=== PATIENT | male | born 1960 | race Caucasian/White ===

== ENCOUNTER → 2017-06-03 11:38 | Outpatient (REF) | payer MEDICARE, SELFPAY ==
[2017-06-03 14:36] LABS: Alanine Aminotransferase 38 U/L (12-78); Albumin Level 3.7 gm/dL (3.4-5.0); Albumin/Globulin Ratio 1.2 (1.1-1.8); Alkaline Phosphatase 77 U/L (46-116); Anion Gap 13.1 mEq/L (5-15); Aspartate Amino Transferase 20 U/L (15-37); Bilirubin,Total 0.3 mg/dL (0.2-1.0); Blood Urea Nitrogen 19 mg/dL (7-18); Calcium 8.4 mg/dL (8.5-10.1); Carbon Dioxide 27 mmol/L (21.0-32.0); Chloride 105 mmol/L (98-107); Chol/HDL Ratio 3.3 (1-3.5); Cholesterol 157 mg/dL (140-200); Creatinine,Serum 0.99 mg/dL (0.70-1.30); Estimated Glomerular Filt Rate 78 ml/min (>60); GFR (African American) 95 ML/MIN (>60); Globulin 3.1 gm/dl (1.3-3.2); Glucose 90 mg/dL (74-106); HDL Cholesterol 47 mg/dL (27-67); LDL Cholesterol 88 mg/dL (0-130); Potassium 4.1 mmoL/L (3.5-5.1); Sodium 141 mmol/L (136-145); T4 (Thyroxine) 9.2 ug/dl (4.7-13.3); Thyroid Stimulating Hormone 1.53 uIU/ml (0.358-3.740); Total Protein,Serum 6.8 gm/dL (6.4-8.2); Triglycerides 111 mg/dL (30-200); VLDL Cholesterol 22 mg/dL (0-40)
[2017-06-03 14:53] LABS: Basophils # 0.1 K/mm3 (0-0.2); Basophils % 1.2 % (0.1-2.0); Eosinophils # 0.3 K/mm3 (0.0-0.4); Eosinophils % 3.4 % (0.1-12.0); Hematocrit 42.3 % (42.0-52.0); Hemoglobin 13.9 g/dL (14.1-18.0); Lymphocytes % 25.2 K/mm3 (10-50); Mean Corpuscular HGB Conc 32.7 g/dL (31.8-35.4); Mean Corpuscular Hemoglobin 30.3 pg (27.0-31.2); Mean Corpuscular Volume 92.5 fl (80-94); Monocytes # 0.5 K/mm3 (0.1-1.0); Monocytes % 6.6 % (1.7-9.3); Neutrophils % 63.7 % (37.0-80.0); Platelet Count 300 K/mm3 (142-424); Red Blood Count 4.58 M/mm3 (4.60-6.20); Red Cell Distribution Width 13.3 % (11.5-17.5); White Blood Count 7.9 K/mm3 (4.8-10.8)
[2017-06-04 12:19] LABS: PSA, Free 0.05 ng/mL; Prostate Specific Ag 0.1 ng/mL (0.0-4.0); Vitamin D 25 Hydroxy 41.1 ng/mL (30.0-100.0)
== END ==
LOC: LAB 11:38
PROVIDERS: Visit Provider Nurse Practitioner Family
DX: F17.200 Nicotine dependence, unspecified, uncomplicated (principal); R53.83 Other fatigue; I10 Essential (primary) hypertension; R35.1 Nocturia
CPT/HCPCS: 80053; 80061; 82652; 84153; 84154; 84436; 84443; 85025

== ENCOUNTER → 2017-09-03 11:16 | Outpatient (REF) | payer MEDICARE, SELFPAY ==
[2017-09-03 13:26] LABS: Basophils # 0.1 K/mm3 (0-0.2); Basophils % 0.8 % (0.1-2.0); Eosinophils # 0.1 K/mm3 (0.0-0.4); Hematocrit 46.8 % (42.0-52.0); Hemoglobin 14.6 g/dL (14.1-18.0); Lymphocytes # 2.4 K/mm3 (0.7-4.5); Lymphocytes % 28.2 K/mm3 (10-50); Mean Corpuscular HGB Conc 31.3 g/dL (31.8-35.4); Mean Corpuscular Volume 89.5 fl (80-94); Mean Platelet Volume 7.4 fl (7.4-10.4); Monocytes # 0.4 K/mm3 (0.1-1.0); Monocytes % 4.8 % (1.7-9.3); Neutrophils # 5.5 K/mm3 (1.8-7.8); Neutrophils % 65.3 % (37.0-80.0); Platelet Count 317 K/mm3 (142-424); Red Blood Count 5.23 M/mm3 (4.60-6.20); Red Cell Distribution Width 13.5 % (11.5-17.5); White Blood Count 8.4 K/mm3 (4.8-10.8)
[2017-09-03 13:39] LABS: Alanine Aminotransferase 23 U/L (12-78); Albumin Level 3.9 gm/dL (3.4-5.0); Albumin/Globulin Ratio 1.2 (1.1-1.8); Alkaline Phosphatase 80 U/L (46-116); Anion Gap 14.2 mEq/L (5-15); Aspartate Amino Transferase 8 U/L (15-37); Bilirubin,Total 0.3 mg/dL (0.2-1.0); Blood Urea Nitrogen 16 mg/dL (7-18); Calcium 9.7 mg/dL (8.5-10.1); Carbon Dioxide 30 mmol/L (21.0-32.0); Chloride 106 mmol/L (98-107); Chol/HDL Ratio 3.4 (1-3.5); Cholesterol 171 mg/dL (140-200); Estimated Glomerular Filt Rate 78 ml/min (>60); GFR (African American) 94 ML/MIN (>60); Globulin 3.2 gm/dl (1.3-3.2); Glucose 99 mg/dL (74-106); HDL Cholesterol 51 mg/dL (27-67); LDL Cholesterol 90 mg/dL (0-130); Potassium 5.2 mmoL/L (3.5-5.1); Sodium 145 mmol/L (136-145); T4 (Thyroxine) 8.2 ug/dl (4.7-13.3); Thyroid Stimulating Hormone 1.34 uIU/ml (0.358-3.740); Total Protein,Serum 7.1 gm/dL (6.4-8.2); Triglycerides 151 mg/dL (30-200); VLDL Cholesterol 30 mg/dL (0-40)
[2017-09-04 15:50] LABS: Vitamin B12 831 pg/mL (232-1245); Vitamin D 25 Hydroxy 36.9 ng/mL (30.0-100.0)
== END ==
LOC: LAB 11:16
PROVIDERS: Visit Provider Nurse Practitioner Family
DX: I10 Essential (primary) hypertension (principal); R53.83 Other fatigue; F17.200 Nicotine dependence, unspecified, uncomplicated
CPT/HCPCS: 80053; 80061; 82607; 82652; 84436; 84443; 85025

== ENCOUNTER → 2019-08-17 13:30 | Outpatient (CLI) | payer MEDICARE, SELFPAY ==
[2019-08-17 14:06] LABS: Alanine Aminotransferase 24 U/L (12-78); Albumin Level 4.5 g/dl (3.5-5.0); Albumin/Globulin Ratio 1.6 (1.1-1.8); Alkaline Phosphatase 71 U/L (38-126); Anion Gap 11.5 mEq/L (5-15); Aspartate Amino Transferase 28 U/L (17-59); Bilirubin,Total 0.2 mg/dl (0.2-1.3); Blood Urea Nitrogen 22 mg/dl (9-20); Calcium 9.8 mg/dl (8.4-10.2); Carbon Dioxide 26 mmol/L (22.0-30.0); Chloride 104 mmol/L (98-107); Chol/HDL Ratio 2.7 (1-3.5); Cholesterol 168 mg/dl (140-200); Estimated Glomerular Filt Rate 87 ml/min (>60); GFR (African American) 105 ML/MIN (>60); Globulin 2.9 g/dL (1.3-3.2); Glucose 100 mg/dl (74-100); HDL Cholesterol 62 mg/dl (40-60); Potassium 4.5 mmoL/L (3.5-5.1); Sodium 137 mmol/L (136-145); Total Protein,Serum 7.4 g/dl (6.3-8.2); Triglycerides 126 mg/dl (30-150); VLDL Cholesterol 25 mg/dL (0-40)
[2019-08-17 14:18] LABS: Direct LDL Cholesterol 106.51 mg/dL (100-129)
[2019-08-17 14:24] LABS: T4 (Thyroxine) 8.2 ug/dl (5.53-11.0)
[2019-08-17 14:37] LABS: Thyroid Stimulating Hormone 2.18 uIU/mL (0.465-4.68)
[2019-08-18 11:39] LABS: PSA, Free 0.16 ng/mL; Prostate Specific Ag 0.4 ng/mL (0.0-4.0); Vitamin D 25 Hydroxy 35.7 ng/mL (30.0-100.0)
== END ==
PROVIDERS: Visit Provider Nurse Practitioner Family
DX: I10 Essential (primary) hypertension (principal); F17.200 Nicotine dependence, unspecified, uncomplicated; N52.1 Erectile dysfunction due to diseases classified elsewhere
CPT/HCPCS: 80053; 80061; 82652; 84153; 84154; 84436; 84443

== ENCOUNTER → 2020-11-22 17:44 | Outpatient (CLI) | payer MEDICARE, SELFPAY ==
[2020-11-22 17:46] LABS: Coronavirus 19, PCR Not Detected (NotDetected); Influenza A, PCR Not Detected (NotDetected); Influenza B, PCR Not Detected (NotDetected)
== END ==
PROVIDERS: Visit Provider Nurse Practitioner Family
DX: J32.9 Chronic sinusitis, unspecified (principal); Z11.52 Encounter for screening for COVID-19
CPT/HCPCS: U0003

== ENCOUNTER → 2021-02-11 12:57 | Outpatient (CLI) | payer MEDICARE, SELFPAY ==
[2021-02-11 15:07] LABS: Chloride 105 mmol/L (98-107); Potassium 4.3 mmoL/L (3.5-5.1); Sodium 141 mmol/L (136-145)
[2021-02-11 15:09] LABS: Alanine Aminotransferase 19 U/L (12-78); Aspartate Amino Transferase 25 U/L (17-59); Blood Urea Nitrogen 14 mg/dl (9-20); Estimated Glomerular Filt Rate 116 ml/min (>60); GFR (African American) 140 ML/MIN (>60)
[2021-02-11 15:10] LABS: Albumin Level 4.2 g/dl (3.5-5.0); Albumin/Globulin Ratio 1.6 (1.1-1.8); Alkaline Phosphatase 79 U/L (38-126); Anion Gap 11.3 mEq/L (5-15); Bilirubin,Total 0.2 mg/dl (0.2-1.3); Calcium 9.1 mg/dl (8.4-10.2); Carbon Dioxide 29 mmol/L (22.0-30.0); Cholesterol 137 mg/dl (140-200); Globulin 2.7 g/dL (1.3-3.2); Glucose 95 mg/dl (74-100); Total Protein,Serum 6.9 g/dl (6.3-8.2); Triglycerides 137 mg/dl (30-150); VLDL Cholesterol 27 mg/dL (0-40)
[2021-02-11 15:11] LABS: Chol/HDL Ratio 2.8 (1-3.5); HDL Cholesterol 49 mg/dl (40-60)
[2021-02-11 15:17] LABS: Basophils # 0.1 K/mm3 (0-0.2); Basophils % 1.4 % (0.1-2.0); Eosinophils # 0.2 K/mm3 (0.0-0.4); Eosinophils % 1.9 % (0.1-12.0); Hematocrit 42.5 % (42.0-52.0); Hemoglobin 14.7 g/dL (14.1-18.0); Lymphocytes # 2.3 K/mm3 (0.7-4.5); Lymphocytes % 25.2 % (10-50); Mean Corpuscular HGB Conc 34.6 g/dL (31.8-35.4); Mean Corpuscular Hemoglobin 31.3 pg (27.0-31.2); Mean Corpuscular Volume 90.4 fl (80-94); Mean Platelet Volume 8.8 fl (7.4-10.4); Monocytes # 0.5 K/mm3 (0.1-1.0); Monocytes % 5.7 % (1.7-9.3); Neutrophils % 65.8 % (37.0-80.0); Platelet Count 350 K/mm3 (142-424); Red Cell Distribution Width 13.6 % (11.5-17.5); White Blood Count 9.2 K/mm3 (4.8-10.8)
[2021-02-11 15:32] LABS: T4 (Thyroxine) 8.5 ug/dl (5.53-11.0)
[2021-02-11 15:45] LABS: Direct LDL Cholesterol 99.68 mg/dL (100-129); Thyroid Stimulating Hormone 2.25 uIU/mL (0.465-4.68)
[2021-02-11 15:59] LABS: 25-OH Vitamin D, Total 45.9 ng/mL (30-100)
[2021-02-11 16:30] LABS: Prostate Specific Ag Screen 0.3 ng/ml (0.0-4.0)
== END ==
PROVIDERS: Visit Provider Nurse Practitioner Family
DX: E55.9 Vitamin D deficiency, unspecified (principal); F17.200 Nicotine dependence, unspecified, uncomplicated; G89.4 Chronic pain syndrome; I10 Essential (primary) hypertension; Z12.5 Encounter for screening for malignant neoplasm of prostate; J20.9 Acute bronchitis, unspecified
CPT/HCPCS: 80053; 80061; 82306; 84436; 84443; 85025; G0103

== ENCOUNTER → 2021-02-18 08:38 | Outpatient (CLI) | payer MEDICARE, SELFPAY | PROVIDERS: Visit Provider Surgery | DX: Z01.812 Encounter for preprocedural laboratory examination (principal); Z11.52 Encounter for screening for COVID-19; R13.10 Dysphagia, unspecified; Z13.810 Encounter for screening for upper gastrointestinal disorder | CPT/HCPCS: C9803; U0003; U0005 ==

== ENCOUNTER 2021-02-19 07:28 | Day surgery (SDC) | payer MEDICARE, MEDICAID, SELFPAY ==
[2021-02-13 14:42] VITALS: BMI 29.9
--- NOTE | 2021-02-19 07:40 | P.PN_ITS ---
[facility] Anesthesia Checklist - Patient Identification Patient Identification: Arm Band - Structural Data Admitted From: Home Planned Operative Procedure/s: EGD Consent for Planned Operative Procedure(s) Verified: Yes - NPO Status Verified Time NPO: 00:00 - Airway Assessment C-Spine Mobility Assessed: Yes TMJ Mobility Assessed: Yes Dentition: Good Dentition - Neurological Assessment Level of Consciousness: Awake Hx Seizures: No Numbness or tingling in extremities: No - Anesthesia Plan Anesthesia Risk discussed: Yes Anesthesia Plan: Verified ASA Class: III Anesthesia Type: MAC [facility] History I have reviewed the patient's past medical history: Yes Medical History: Reports:: Anxiety, Gastroesophageal Reflux Disease(GERD), Hypertension Denies:: Cancer, Diabetes Mellitus Type 1, Diabetes Mellitus Type 2, Internal Pacemaker, MRSA *Have you ever received a pneumonia vaccine?: No *Have you received a flu vaccine this season?: Yes Other Medical History: Reports: Arthritis, Fibromyalgia, Other Anesthesia experience/problems:: None Laterality Cases: Bilateral: Tonsillectomy Other Surgeries: Yes: No Previous Surgery, Hernia Repair, Other. No: Pacemaker Amputation: No Fractures: No - *Social History Last grade of school completed: High school graduate Smoking Status: Current every day smoker Tobacco Type: cigarettes # Packs/Day (cigarettes): 1 Alcohol Intake: current Alcohol Intake Frequency:: holidays/special occasions only Substance Use Type: denies use *Occupational Status:: disabled Housing: house Household Members: spouse *Travel in the last 8 weeks: None - Psychiatric History Pschychiatric History:: Reports:: Anxiety Family Hx:: Cancer
[2021-02-19 07:47] VITALS: BP 150/70; PULSE 83; RESP 18; TEMP 36.5; O2SAT 96
[2021-02-19 08:24] VITALS: O2SAT 97
[2021-02-19 08:38] VITALS: BP 103/70; PULSE 78; RESP 18; TEMP 36.1; O2SAT 90
--- NOTE | 2021-02-19 08:39 | HMH.SCOPE ---
- Procedure: Date: 02/19/21 Patient Date of :: 1960 Procedure Performed:: Esophagogastroduodenoscopy with biopsy Indications:: Reflux Dysphagia Performing Provider:: David Redd MD Referring Provider:: . Sedation:: Monitored anesthesia care Procedure:: After informed consent was obtained the patient was taken to the endoscopy suite. Sedation ensued after the patient was transferred to the left lateral decubitus position. Pulse, blood pressure, and oxygen saturation were monitored throughout the procedure. The endoscope was advanced beyond the duodenal bulb. Retroflexion within the gastric lumen was accomplished. The gastroscope was carefully removed and the patient was transferred to recovery in stable condition. Please see findings and specimens below for detail. Findings:: Distal esophageal candidiasis Gastroesophageal junction at 43 cm Patchy/streaking gastroduodenitis Specimens:: Antral biopsy Biopsy of gastric cardia Recommendations:: Diflucan prescription ordered Follow-up pathology The patient does report a history of colon polyps. Although he has undergone a Cologuard test fairly recently, a colonoscopy is warranted. The patient states that he will think about it . Complications:: No immediate Estimated blood obtained (mL): 1
[2021-02-19 08:48] VITALS: BP 107/69; PULSE 71; RESP 18; O2SAT 98
[2021-02-19 08:58] VITALS: BP 133/68; PULSE 64; RESP 18; O2SAT 97
[2021-02-19 09:06] VITALS: BP 145/82; PULSE 68; RESP 18; O2SAT 98
== END 2021-02-19 09:09 | disposition home or self-care (01) ==
LOC: OUTP 07:30
PROVIDERS: PCP Nurse Practitioner Family; Visit Provider Surgery
PROC: 0DJ08ZZ Inspection of Upper Intestinal Tract, Via Natural or Artificial Opening Endoscopic (ICD-10-PCS; CPT 43235; principal; 2021-02-19 08:30)
DX: B37.81 Candidal esophagitis (principal); K29.90 Gastroduodenitis, unspecified, without bleeding; F41.9 Anxiety disorder, unspecified; I10 Essential (primary) hypertension; M19.90 Unspecified osteoarthritis, unspecified site; M79.7 Fibromyalgia; E78.5 Hyperlipidemia, unspecified; Z72.0 Tobacco use; Z80.9 Family history of malignant neoplasm, unspecified; Z79.899 Other long term (current) drug therapy
CPT/HCPCS: 43239; 88305

== ENCOUNTER → 2021-05-14 15:06 | Outpatient (CLI) | payer MEDICARE, SELFPAY ==
[2021-05-14 15:30] LABS: Basophils # 0.1 K/mm3 (0-0.2); Eosinophils # 0.2 K/mm3 (0.0-0.4); Hemoglobin 14.4 g/dL (14.1-18.0); Lymphocytes # 2.9 K/mm3 (0.7-4.5); Lymphocytes % 30.9 % (10-50); Mean Corpuscular HGB Conc 34.3 g/dL (31.8-35.4); Mean Corpuscular Hemoglobin 31.2 pg (27.0-31.2); Mean Corpuscular Volume 91.1 fl (80-94); Mean Platelet Volume 7.7 fl (7.4-10.4); Monocytes # 0.4 K/mm3 (0.1-1.0); Monocytes % 4.7 % (1.7-9.3); Neutrophils # 5.7 K/mm3 (1.8-7.8); Neutrophils % 61.4 % (37.0-80.0); Platelet Count 316 K/mm3 (142-424); Red Blood Count 4.61 M/mm3 (4.60-6.20); Red Cell Distribution Width 13.8 % (11.5-17.5); White Blood Count 9.3 K/mm3 (4.8-10.8)
[2021-05-14 17:07] LABS: Blood Urea Nitrogen 24 mg/dl (9-20); Calcium 8.7 mg/dl (8.4-10.2); Carbon Dioxide 29 mmol/L (22.0-30.0); Chloride 104 mmol/L (98-107); Estimated Glomerular Filt Rate 86 ml/min (>60); GFR (African American) 105 ML/MIN (>60); Glucose 117 mg/dl (74-100); Sodium 140 mmol/L (136-145)
== END ==
PROVIDERS: PCP Nurse Practitioner Family; Visit Provider Internal Medicine Cardiovascular Disease
DX: F17.200 Nicotine dependence, unspecified, uncomplicated (principal); I10 Essential (primary) hypertension; I20.0 Unstable angina; I63.9 Cerebral infarction, unspecified; R00.2 Palpitations; R06.00 Dyspnea, unspecified; Z01.812 Encounter for preprocedural laboratory examination; Z11.52 Encounter for screening for COVID-19
CPT/HCPCS: 36415; 80048; 85025; C9803; U0003; U0005

== ENCOUNTER 2021-05-15 09:59 | Day surgery (SDC) | payer MEDICARE, SELFPAY ==
[2021-05-15] VITALS (13 sets, daily range): BP systolic 114–178; BP diastolic 63–107; PULSE 67–95; RESP 18–19; TEMP 36.7; O2SAT 95–100; BMI 30.3
--- NOTE | 2021-05-15 07:04 | IR_ITS ---
APPROVED REPORT Patient Location: Outpatient PROCEDURES Left heart catheterization Left ventriculogram Selective coronary angiogram FFR to the LAD Drug-eluting stent deployment to the proximal and mid LAD FFR to the left main artery INDICATION Coronary artery disease, Typical angina pectoris, Ischemic response to adenosine with an FFR index of 0.78 Informed consent was obtained prior to the procedure. COMPLICATIONS None Estimated Blood Loss: Less than 10 mls TECHNIQUE One percent lidocaine used to anesthetize the right anterior aspect of the wrist. The right radial artery was accessed via the Seldinger technique. A 6 Malawian sheath was placed in the right radial artery. 2.5 mg of verapamil, 800 mcg of nitroglycerin, 1mg Lidocaine and 5000 U Heparin were given through the arterial sheath. The Poppa catheter was also used to perform left heart catheterization, left ventriculogram and selective coronary angiogram. At the end the diagnostic angiogram therapeutic heparin was administered giving a therapeutic ACT and a Choice PT extra-support wire was placed distally in the LAD. A nevus catheter was equalized and then advanced into the mid LAD where adenosine was infused per protocol. The FFR index dropped to 0.78 and patient began experiencing significant dyspnea with coughing. The test was terminated at this time and a 3.5 x 30 mm resolute Sanford stent was deployed at 18 filiberto reducing the hemodynamically severe stenosis to 0%. At this point the nevus catheter was placed back into the left anterior descending artery and adenosine was infused. The FFR index nadired at 0.91 following stenting of the proximal LAD. Following this a significant appearing stenosis was identified distal to most likely what was an overexpanded stent into the mid LAD. Because of the over sizing of the stent I felt a better transition should be made with a smaller stent therefore a 2.75 x 12 mm resolute Sanford stent was placed distal to the LAD stent yet still overlapping it and deployed at 18 filiberto. The balloon was brought back and deployed at 24 filiberto to mesh the 2 stents. RUTH-3 flow was present down the LAD before and after the procedure. At the end of procedure the apparatus was removed the sheath was removed good hemostasis was achieved using TR banding patient was transferred to the postop putting in stable condition ANGIOGRAPHIC RESULTS The left main artery Has a long mid vessel cylindrical 30% stenosis The left anterior descending artery Is a proximal concentric calcified 40% stenosis with remaining vessel having mild 10% luminal irregularities The circumflex artery Large nondominant with mild 10% luminal irregularities The right coronary artery Is large and dominant with an ostial 20% stenosis proximal 10 to 20% stenoses mid vessel 30% stenoses with a concentric 30 to 40% stenosis. The posterior descending artery has mild 10% luminal irregularities while the much larger posterior lateral branch has a mid vessel 50 to 60% focal stenosis The HENRY ventriculogram reveals Not performed The left ventricular end-diastolic pressure Not measured IMPRESSION Angiographically indeterminate disease in the proximal LAD which produced severe hemodynamic significance creating an FFR index of 0.78 Successful stenting of a hemodynamically severe proximal LAD stenosis severe disease reduced to 0% with 2 drug-eluting stents which extended from the proximal to the mid segment in a contiguous manner Persistent mild to moderat left main disease as described above Moderate disease in the right coronary artery as described above PLAN 1. Dual antiplatelet therapy 2. LDL less than 55 3. Cardiac rehabilitation 4. Avoidance of tobacco products
[2021-05-15 12:25] LABS: CATHL Activated Clotting Time 399 SEC (74-125)
--- NOTE | 2021-05-15 14:03 | HMH.PHACLD ---
Manjeet Siddiqui SR has received discharge medication counseling on the following medications: ASPIRIN ROSUVASTATIN BRILINTA METOPROLOL ALTACE PATIENT VERBALIZED UNDERSTANDING AND HAD NO QUESTIONS AT THIS TIME. -NESHA MOTA, JORDAND
== END 2021-05-15 15:05 | disposition home or self-care (01) ==
LOC: CATHLAB 10:02
PROVIDERS: PCP Nurse Practitioner Family; Visit Provider Internal Medicine
DX: I10 Essential (primary) hypertension; I25.110 Atherosclerotic heart disease of native coronary artery with unstable angina pectoris; Z79.899 Other long term (current) drug therapy; F17.210 Nicotine dependence, cigarettes, uncomplicated
CPT/HCPCS: 85347; 92928; 93458; 93571; 93572; 99152; 99153; C1725; C1769; C1874; C1876; C9600; J1644; Q9967

== ENCOUNTER 2021-05-29 13:55 | Outpatient (RCR) | payer MEDICARE, SELFPAY | END 2021-05-29 13:59 | disposition home or self-care (01) | LOC: PT 13:55 | PROVIDERS: Visit Provider Internal Medicine | DX: I25.10 Atherosclerotic heart disease of native coronary artery without angina pectoris (principal); Z95.5 Presence of coronary angioplasty implant and graft | CPT/HCPCS: 93798 ==

== ENCOUNTER → 2022-02-18 08:58 | Outpatient (CLI) | payer MEDICARE, SELFPAY ==
[2022-02-18 09:52] LABS: Basophils # 0.1 K/mm3 (0-0.2); Basophils % 1.2 % (0.1-2.0); Eosinophils # 0.2 K/mm3 (0.0-0.4); Eosinophils % 2.1 % (0.1-12.0); Hematocrit 42.2 % (42.0-52.0); Lymphocytes # 2.6 K/mm3 (0.7-4.5); Lymphocytes % 30.1 % (10-50); Mean Corpuscular HGB Conc 33.1 g/dL (31.8-35.4); Mean Corpuscular Hemoglobin 30.6 pg (27.0-31.2); Mean Corpuscular Volume 92.5 fl (80-94); Mean Platelet Volume 7.9 fl (7.4-10.4); Monocytes # 0.7 K/mm3 (0.1-1.0); Monocytes % 7.5 % (1.7-9.3); Neutrophils # 5.2 K/mm3 (1.8-7.8); Neutrophils % 59.1 % (37.0-80.0); Platelet Count 343 K/mm3 (142-424); Red Blood Count 4.56 M/mm3 (4.60-6.20); Red Cell Distribution Width 13.4 % (11.5-17.5); White Blood Count 8.8 K/mm3 (4.8-10.8)
[2022-02-18 11:03] LABS: Alanine Aminotransferase 19 U/L (12-78); Albumin Level 4.3 g/dl (3.5-5.0); Alkaline Phosphatase 94 U/L (38-126); Anion Gap 15.2 mEq/L (5-15); Aspartate Amino Transferase 26 U/L (17-59); Bilirubin,Indirect 0.2 mg/dL (0.0-0.9); Bilirubin,Total 0.2 mg/dl (0.2-1.3); Bilirubin,Unconjugated 0.2 mg/dL (0.0-1.1); Blood Urea Nitrogen 21 mg/dl (9-20); Calcium 9.9 mg/dl (8.4-10.2); Carbon Dioxide 30 mmol/L (22.0-30.0); Chloride 101 mmol/L (98-107); Chol/HDL Ratio 2.3 (1-3.5); Cholesterol 103 mg/dl (140-200); Estimated Glomerular Filt Rate 69 ml/min (>60); GFR (African American) 83 ML/MIN (>60); Glucose 90 mg/dl (74-100); HDL Cholesterol 45 mg/dl (40-60); Magnesium 1.9 mg/dl (1.6-2.3); Potassium 4.2 mmoL/L (3.5-5.1); Sodium 142 mmol/L (136-145); Total Protein,Serum 6.8 g/dl (6.3-8.2); Triglycerides 139 mg/dl (30-150); VLDL Cholesterol 28 mg/dL (0-40)
== END ==
PROVIDERS: PCP Emergency Medicine; Visit Provider Nurse Practitioner
DX: E78.2 Mixed hyperlipidemia (principal); F17.200 Nicotine dependence, unspecified, uncomplicated; I10 Essential (primary) hypertension; I25.10 Atherosclerotic heart disease of native coronary artery without angina pectoris; Z95.5 Presence of coronary angioplasty implant and graft
CPT/HCPCS: 36415; 80048; 80061; 80076; 83735; 84439; 84443; 85025

== ENCOUNTER 2022-04-01 07:22 | Day surgery (SDC) | payer MEDICARE, SELFPAY ==
[2022-03-27 10:43] VITALS: BMI 29.9
[2022-04-01 07:35] VITALS: BP 172/88; PULSE 71; RESP 20; TEMP 36.4; O2SAT 98
--- NOTE | 2022-04-01 07:41 | HMH.SCOPE ---
Procedure: Date: 04/01/22 Patient Date of :: 1960 Procedure Performed:: Esophagogastroduodenoscopy with biopsy Colonoscopy Indications:: History of colon polyps Gastroesophageal reflux Esophagogastroduodenoscopy performed in February 2021 revealed esophageal candidiasis. He does have a remote history of colon polyps. Discussion with regard to colonoscopy was discussed at time of EGD; however, he wished to postpone . Performing Provider:: David Redd MD Referring Provider:: . Sedation:: Monitored anesthesia care Procedure:: After informed consent was obtained the patient was taken to the endoscopy suite. Sedation ensued after the patient was transferred to the left lateral decubitus position. Pulse, blood pressure, and oxygen saturation were monitored throughout the procedure. The endoscope was advanced beyond the duodenal bulb. Retroflexion within the gastric lumen was accomplished. The gastroscope was carefully removed. Digital rectal exam revealed no significant abnormality. The colonoscope was placed in position. The entire colon was evaluated. The colonoscope was carefully removed and the patient was transferred to recovery in stable condition. Please see findings and specimens below for detail. Findings:: Sliding hiatal hernia GE junction at 41 cm Minimal gastritis Bowel preparation moderate Scattered diverticulosis Multiple complex polyps (see specimens) Specimens:: Antral biopsy Right colon polyp (cold snare) 8 mm sessile polyp at 65 cm (cold snare) Adjacent polyps at 30 cm (cold snare) Polyp at 5 cm (cold snare) Recommendations:: Continue proton pump inhibition. Timing of repeat colonoscopy is pending pathology but will likely be between 1-2 years secondary to size/nature/number of polyps and moderate bowel preparation. Complications:: No immediate Estimated blood obtained (mL): 1
[2022-04-01 07:55] VITALS: O2SAT 97
--- NOTE | 2022-04-01 08:03 | EXP.ANES.CKL ---
[facility] Disclaimer: The information contained in this section may have been updated after the patient was seen, as this information can be updated by other users. Medical History Anxiety CAD (coronary artery disease) Chest pain Chronic pain syndrome COPD (chronic obstructive pulmonary disease) Crescendo angina Dizziness Dyspnea Erectile disorder, generalized, mild HTN (hypertension) Hypertensive disorder Palpitations Surgical History History of coronary artery stent placement History of hernia repair History of tonsillectomy Family History Other Family history of cancer Social History Smoking Status: Current every day smoker tobacco type: cigarettes packs per day: 1 second hand exposure: No alcohol intake: never substance use type: denies use current occupational status: unemployed and disabled Travel in the last 8 weeks: Inside the [place] household members: none housing: house current occupational exposures/hazards: No caffeine: Yes [facility] Anesthesia Checklist Patient Identification Patient Identification: Arm Band and Verbal (Name & ) Structural Data Admitted From: Home Planned Operative Procedure/s: EGD/Colonoscopy Verified Documents: Surgical Consent NPO Status Verified Time NPO: 05:30 Airway Assessment C-Spine Mobility Assessed: Yes TMJ Mobility Assessed: Yes Dentition: Good Dentition Neurological Assessment Level of Consciousness: Awake, Alert and Appropriate Anesthesia Plan ASA Class: III Anesthesia Type: MAC
[2022-04-01 08:55] VITALS: BP 113/76; PULSE 83; RESP 18; TEMP 36.7; O2SAT 99
[2022-04-01 09:05] VITALS: BP 146/95; PULSE 74; RESP 18; O2SAT 98
[2022-04-01 09:15] VITALS: BP 147/87; PULSE 69; RESP 18; O2SAT 98
[2022-04-01 09:30] VITALS: BP 165/97; PULSE 64; RESP 18; TEMP 36.6; O2SAT 97
== END 2022-04-01 09:25 | disposition home or self-care (01) ==
PROVIDERS: PCP Emergency Medicine; Visit Provider Surgery
PROC: 0DJ08ZZ Inspection of Upper Intestinal Tract, Via Natural or Artificial Opening Endoscopic (ICD-10-PCS; CPT 43235; principal; 2022-04-01 10:30)
DX: K21.9 Gastro-esophageal reflux disease without esophagitis (principal); Z86.010 Personal history of colon polyps; K57.30 Diverticulosis of large intestine without perforation or abscess without bleeding; Z12.11 Encounter for screening for malignant neoplasm of colon; D12.6 Benign neoplasm of colon, unspecified; F17.210 Nicotine dependence, cigarettes, uncomplicated; Z79.899 Other long term (current) drug therapy
CPT/HCPCS: 43239; 45385; 88305; J2704

== ENCOUNTER → 2022-06-18 12:24 | Outpatient (CLI) | payer MEDICARE, SELFPAY ==
--- NOTE | 2022-06-18 12:33 | XR_ITS ---
FINAL REPORT CLINICAL HISTORY: L Foot pain x 3 weeks, no injury, patient states pain on plantar surface at base of toes and shooting pains into 4th and 5th toes FINDINGS: Left foot Three views were obtained. There is no acute fracture or dislocation. There is a small plantar spur. There are mild hypertrophic changes at the 1st metatarsophalangeal joint. No soft tissue abnormality is identified. IMPRESSION: Degenerative and chronic appearing findings. Reviewed, Interpreted and Dictated by Amauri Vela MD Transcribed by Ariana Hawley Authenticated and [facility]
== END ==
PROVIDERS: PCP Nurse Practitioner Family; Visit Provider Nurse Practitioner Family
DX: M79.672 Pain in left foot (principal)
CPT/HCPCS: 73630

== ENCOUNTER → 2022-07-02 10:18 | Outpatient (CLI) | payer MEDICARE, SELFPAY ==
--- NOTE | 2022-07-02 10:27 | XR_ITS ---
FINAL REPORT CLINICAL HISTORY: foot pain COMPARISON: 06/18/2022 FINDINGS: LEFT FOOT Three weight-bearing views of the left foot demonstrate no acute fracture or dislocation. The joint spaces are preserved. The soft tissues are unremarkable. IMPRESSION: No acute bony abnormality. Reviewed, Interpreted and Dictated by Amauri Vela MD Transcribed by Ana Krueger Authenticated and [facility]
--- NOTE | 2022-07-02 10:27 | XR_ITS ---
FINAL REPORT CLINICAL HISTORY: foot pain FINDINGS: RIGHT FOOT Three weight-bearing views of the right foot demonstrate no acute fracture or dislocation. The joint spaces are preserved. There is a small plantar calcaneal spur. The soft tissues are unremarkable. IMPRESSION: No acute bony abnormality. Reviewed, Interpreted and Dictated by Amauri Vela MD Transcribed by Ana Krueger Authenticated and [facility]
== END ==
PROVIDERS: PCP Nurse Practitioner Family; Visit Provider Podiatrist
DX: M79.672 Pain in left foot (principal); M79.671 Pain in right foot
CPT/HCPCS: 73630

== ENCOUNTER → 2022-09-10 06:58 | Outpatient (CLI) | payer MEDICARE, SELFPAY ==
--- NOTE | 2022-09-10 07:01 | NM_ITS ---
APPROVED REPORT Exam: Nuclear Stress Test Indication: chest pain..soa..fatigue..hypertension..family hx..tobacco user..palpitations Patient Location: Outpatient Stress Tech: Davida Abdi [place] Tech:Rina Milligan, ARRT RT(R)(N) Ht: 5 ft 8 in Wt: 198 lbs HR: 63 bpm BP: 158/76 mmHg BSA: 2.03 m2 TID: 1.10 BMI: 30.1 History: chest pain..soa..fatigue..hypertension..family hx..tobacco user..palpitation Procedure: Patient exercised on Devendra protocol 7:45 minutes and sec, resting heart rate 63 bpm, resting blood pressure 158/76 mmHg, with exercise maximum heart rate achived was 129 bpm which is 81 % of the maximum predicted heart rate and blood pressure was 224/86 mmHg. Test was stopped due to fatigue. Patient denied any complaint of chest pain. Patient has exercise capacity, achieved 10.1 METs of workload on treadmill, the blood pressure response to exercise was . Cardiac Stress and Resting SPECT Images: Cardiac Stress and Resting SPECT images were obtained using technetium 99m Myoview 31.7 mCi stress and 10.47 mCi at rest. Resting and stress imaging in both the supine and prone positions demonstrate a large sized, severe, predominantly fixed perfusion defect in the inferior and inferior septal LV wall from the base and extending distally towards the inferoapical region. Gated imaging demonstrates an normal global LV systolic function. There was moderate hypokinesis in the basal inferior and inferoseptal LV wall. LVEF is calculated at 54%. Conclusion: Large sized, severe, predominantly fixed perfusion defect in the inferior and inferior septal LV wall from the base and extending distally towards the inferoapical region. Findings are suggestive of prior infarct with minimal regions of reversible ischemia. Gated imaging demonstrates an normal global LV systolic function. There was moderate hypokinesis in the basal inferior and inferoseptal LV wall. LVEF is calculated at 54%. Electronically signed by : Molly Partida, 09/11/2022 01:22:59
--- NOTE | 2022-09-10 09:16 | CA_ITS ---
APPROVED REPORT Exam: Exercise Treadmill Technologist: Davida Conrad, Ht: 5 ft 8 in Wt: 200 lbs BSA: 2.04 m2 HR: 52 bpm BP: 146/84 mmHg Rhythm: NSR Medical History Medications: Aspirin,,,,, Metoprolol,,,,, Gabapentin,,,,, Pantoprazole,,,,, Flonase,,,,, Ramipril,,,,, PERCOCET,,,,, Albuterol,,,,, ZYRTEC,,,,, CloPIdogrel,,,,, LoraTADINE,,,,, BenaDRYL,,,,, Stress Test Details Test: Devendra HR Resting HR: 63 bpm Max Heart Rate (APMHR): 160 bpm Max HR Achieved: 129 bpm Target HR (85% APMHR): 136 bpm % of APMHR: 81 Recovery HR: 74 bpm HR response to stress: Blunted HR response to stress BP Resting BP: 158.0/76 mmHg Max BP: 224/86 mmHg Recovery BP: 168.0/74.0 mmHg BP response to stress: Abnormal hypertensive response to stress. ECG Resting ECG: Sinus bradycardia, non-specific T-wave changes in inferolateral leads. Borderline R-axis deviation Stress ECG: Minimal upsloping ST depression in lateral leads Arrhythmia: VPC's Recovery ECG: ST return to baseline within < 3 minutes of recovery Recovery Arrhythmia: VPC Clinical Exercise duration: 07:45 min Highest Stage Achieved: III Exercise capacity: 10.1 METs Overall Exercise Capacity for Age: Good Stress ECG Conclusion This was a suboptimal stress test as the patient was unable to achieve > 85% max HR. He walked 7:45 on Devendra Protocol, stopping due to dyspnea. The patient was able to achieve 10.1 METS, exhibiting good exercise capacity for age and sex matched peers. Max HR: 129 % of PM: 81% Max BP: 224/86 METs: 10.1 Test stopped due to: SOA, Fatigue Symptoms: Dyspnea, No CP. Arrhythmias/Ectopy: Occastional PVC noted at peak stress and during recovery. ST-T Changes: No significant change Conclusion: This was a suboptimal stress test in the setting of unable to achieve > 85% max HR (patient took home beta-damaris). The patient had blunted heart rate response and exaggerated BP response to exercise. At peak stress, there was minimal upsloping ST depression < 0.5 mm in the lateral leads. PVCs were noted during stress and recovery. Overall, this was a non-diagnostic ECG stress test in the setting of suboptimal HR at peak stress. Myoview images reported separately. Test Summary REST . . . . . . . Sitting REST . . . . . . . Standing REST 03:55 0.0 0.0 63 . 158/ 76 . . Stage 1 01:00 10.0 1.7 77 . . . . Stage 1 02:00 10.0 1.7 81 . . . . Stage 1 03:00 10.0 1.7 87 . 172/ 84 . . Stage 2 01:00 12.0 2.5 91 . . . . Stage 2 02:00 12.0 2.5 97 . . . . Stage 2 03:00 12.0 2.5 102 . 190/ 84 . . Stage 3 01:00 14.0 3.4 116 . . . . Stage 3 01:45 14.0 3.4 127 . . . Stop exercise at 07:45 RECOVERY 01:00 0.0 0.0 118 . . . . RECOVERY 02:00 0.0 0.0 114 . . . . RECOVERY 03:00 0.0 0.0 91 . 224/ 86 . . RECOVERY 04:00 0.0 0.0 78 . 192/ 78 . . RECOVERY 05:00 0.0 0.0 77 . 192/ 78 . . RECOVERY 06:00 0.0 0.0 77 . 167/ 76 . . RECOVERY 06:37 0.0 0.0 76 . 168/ 74 . . Electronically signed by : Molly Partida, 09/15/2022 19:49:46
== END ==
PROVIDERS: PCP Nurse Practitioner Family; Visit Provider Nurse Practitioner Family
DX: E78.2 Mixed hyperlipidemia (principal); I10 Essential (primary) hypertension; Z95.5 Presence of coronary angioplasty implant and graft; I20.8 Other forms of angina pectoris
CPT/HCPCS: 78452; 93017; 93306; A9502; J2785

== ENCOUNTER → 2022-09-23 09:51 | Outpatient (CLI) | payer MEDICARE, SELFPAY ==
[2022-09-23 10:24] LABS: Basophils # 0.1 K/mm3 (0-0.2); Basophils % 1.1 % (0.1-2.0); Eosinophils # 0.2 K/mm3 (0.0-0.4); Hematocrit 40.8 % (42.0-52.0); Hemoglobin 13.4 g/dL (14.1-18.0); Lymphocytes # 2.4 K/mm3 (0.7-4.5); Lymphocytes % 32.9 % (10-50); Mean Corpuscular HGB Conc 32.9 g/dL (31.8-35.4); Mean Corpuscular Hemoglobin 29.6 pg (27.0-31.2); Mean Corpuscular Volume 89.9 fl (80-94); Mean Platelet Volume 7.5 fl (7.4-10.4); Monocytes # 0.5 K/mm3 (0.1-1.0); Platelet Count 274 K/mm3 (142-424); Red Blood Count 4.53 M/mm3 (4.60-6.20); Red Cell Distribution Width 13.3 % (11.5-17.5); White Blood Count 7.2 K/mm3 (4.8-10.8)
[2022-09-23 11:37] LABS: Chloride 102 mmol/L (98-107); Potassium 4.4 mmoL/L (3.5-5.1); Sodium 140 mmol/L (136-145)
[2022-09-23 11:39] LABS: Alanine Aminotransferase 22 U/L (12-78); Aspartate Amino Transferase 26 U/L (17-59); Bilirubin,Unconjugated 0.2 mg/dL (0.0-1.1); Blood Urea Nitrogen 16 mg/dl (9-20); Estimated Glomerular Filt Rate 86 ml/min (>60); GFR (African American) 104 ML/MIN (>60)
[2022-09-23 11:40] LABS: Albumin Level 4.2 g/dl (3.5-5.0); Alkaline Phosphatase 71 U/L (38-126); Anion Gap 11.4 mEq/L (5-15); Calcium 9.3 mg/dl (8.4-10.2); Carbon Dioxide 31 mmol/L (22.0-30.0); Chol/HDL Ratio 2.2 (1-3.5); Cholesterol 119 mg/dl (140-200); Glucose 82 mg/dl (74-100); HDL Cholesterol 55 mg/dl (40-60); Magnesium 1.9 mg/dl (1.6-2.3); Total Protein,Serum 6.6 g/dl (6.3-8.2); Triglycerides 103 mg/dl (30-150); VLDL Cholesterol 21 mg/dL (0-40)
[2022-09-23 11:51] LABS: Direct LDL Cholesterol 45.07 mg/dL (100-129)
[2022-09-23 11:56] LABS: Free T4 (Free Thyroxine) 1.11 ng/dl (0.78-2.19)
[2022-09-23 12:11] LABS: Thyroid Stimulating Hormone 2.63 uIU/mL (0.465-4.68)
[2022-09-23 12:18] LABS: Bilirubin,Total < 0.1 mg/dl (0.2-1.3)
[2022-09-23 15:01] LABS: Bilirubin,Indirect 0.1 mg/dL (0.0-0.9)
== END ==
PROVIDERS: PCP Nurse Practitioner Family; Visit Provider Nurse Practitioner Family
DX: I20.8 Other forms of angina pectoris; I10 Essential (primary) hypertension; E78.2 Mixed hyperlipidemia; Z95.5 Presence of coronary angioplasty implant and graft
CPT/HCPCS: 36415; 80048; 80061; 80076; 83735; 84439; 84443; 85025

== ENCOUNTER → 2022-09-26 13:20 | Outpatient (CLI) | payer MEDICARE, SELFPAY ==
--- NOTE | 2022-09-26 13:20 | CT_ITS ---
FINAL REPORT TECHNIQUE: Axial imaging of the chest was obtained without contrast. Reformatted images were also obtained and reviewed.This study was performed with techniques to keep radiation doses as low as reasonably achievable, (ALARA). Individualized dose reduction technique using automated exposure control or adjustment of mA and/or kV according to the patient's size were employed. 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 There is no hilar or mediastinal mass or adenopathy. Heart size is normal. There is no evidence of pericardial thickening or calcification to suggest pericarditis. There is mild emphysematous change. There is no pericardial or pleural effusion. Limited images of the upper abdomen are unremarkable. No suspicious infiltrate or nodule is identified on lung window images. IMPRESSION: No evidence of pericardial thickening or calcification to suggest pericarditis. Mild emphysema. Reviewed, Interpreted and Dictated by Diogenes Dejesus III, MD Transcribed by Fiordaliza Mishra Authenticated and [facility]
== END ==
PROVIDERS: PCP Nurse Practitioner Family; Visit Provider Nurse Practitioner Family
DX: E78.2 Mixed hyperlipidemia (principal); F17.200 Nicotine dependence, unspecified, uncomplicated; I10 Essential (primary) hypertension; I31.1 Chronic constrictive pericarditis; R93.1 Abnormal findings on diagnostic imaging of heart and coronary circulation; R94.30 Abnormal result of cardiovascular function study, unspecified; Z95.5 Presence of coronary angioplasty implant and graft; I20.8 Other forms of angina pectoris
CPT/HCPCS: 71250

== ENCOUNTER 2022-10-02 08:32 | Day surgery (SDC) | payer MEDICARE, SELFPAY ==
[2022-10-02] VITALS (13 sets, daily range): BP systolic 134–175; BP diastolic 68–94; PULSE 48–65; RESP 18–19; O2SAT 96–98; BMI 30.4
--- NOTE | 2022-10-02 | IR_ITS ---
APPROVED REPORT PROCEDURES Left heart catheterization Right heart catheterization Left ventriculogram Selective coronary angiogram Intravascular ultrasound of the LAD Drug-eluting stent deployment throughout the left main artery Drug-eluting stent deployment to the ostial proximal LAD Drug-eluting stent deployment to the ostial proximal circumflex artery Drug-eluting stent deployment into the first obtuse marginal Drug-eluting stent deployment to the ostial LAD Drug-eluting stent deployment to the ostial circumflex artery INDICATION Coronary artery disease, Accelerated angina pectoris, Angiographic ambiguity in the left main artery, Severe dampening within the left main artery, MLA of 5.2 mm??? in the left main artery Informed consent was obtained prior to the procedure. COMPLICATIONS None Estimated Blood Loss: Less than 10 ml TECHNIQUE One percent lidocaine used to anesthetize the right anterior aspect of the wrist. The right radial artery was accessed via the Seldinger technique. A 6 Prydeinig sheath was placed in the right radial artery. 150 mg magnesium sulfate, 800 mcg of nitroglycerin, 1mg Lidocaine and 5000 U Heparin were given through the arterial sheath. The papa catheter was also used to perform left heart catheterization, left ventriculogram and selective coronary angiogram. At the end the diagnostic angiogram therapeutic heparin was administered giving a therapeutic ACT and the guide catheter was placed in the left main artery followed by Choice PT extra-support wire down the LAD. Intravascular ultrasound probe was advanced due to severe dampening each time the catheter was inserted into the left main artery. An MLA of the left main artery measured at 5.2 mm??? which was a significant stenosis within the left main artery. Because of this a 5 mm x 12 mm Alvaro frontier stent was deployed at 18 filiberto in the ostial proximal mid distal left main artery reducing the stenosis. After stent deploymen this exacerbated a stenosis identified in the left anterior descending artery and the mid stent dissection was identified proximal to the circumflex artery. Because of this an additional Choice PT extra-support wire was placed down the circumflex artery. A 3.5 x 18 mm Alvaro frontier stent was placed over wire into the circumflex artery while at the same time a 3.5 x 15 mm Exline frontier stent was placed in the LAD. The circumflex artery stent was deployed at 20 filiberto reducing the stenosis as well as the edge dissection. The LAD stent was then deployed at 18 filiberto. An additional 3.5 x 18 mm Exline frontier stent was placed distal to the circumflex artery stent yet still overlapping it and stented into the obtuse marginal artery reducing the stenosis. Both balloons were brought back into the distal left main and inflated simultaneously at 14 filiberto as in a double barrel technique. RUTH-3 flow was present before and after the procedure. At the end of procedure the apparatus was removed the sheath was removed and hemostasis was achieved and TR banding patient was transferred to the postop holding in stable condition One percent lidocaine was used to anesthetize the right anterior aspect of the neck. A auto air conditioning mechanic needle was used to identify the right internal jugular vein. Following this a larger cannulation needle was used to cannulate the right internal jugular vein and a wire was passed into the vein. Prior to the 7 Prydeinig sheath being inserted the wire was confirmed under fluoroscopic guidance to be in the inferior vena cava. A 7 Prydeinig sheath was introduced and a Monroe-Kathleen catheter was floated using hemodynamic waveforms in the pulmonary artery, right ventricle , and right atrium. Saturations were obtained in the pulmonary artery and the right atrium. At the end of the procedure the patient was tr
[2022-10-02 09:29] LABS: Chloride 104 mmol/L (98-107); Potassium 4.2 mmoL/L (3.5-5.1); Sodium 142 mmol/L (136-145)
[2022-10-02 09:32] LABS: Anion Gap 12.2 mEq/L (5-15); Blood Urea Nitrogen 23 mg/dl (9-20); Carbon Dioxide 30 mmol/L (22.0-30.0); Creatinine Clearance Estimated 112 mL/min (50-200); Estimated Glomerular Filt Rate 86 ml/min (>60); GFR (African American) 104 ML/MIN (>60)
[2022-10-02 09:33] LABS: Basophils # 0.1 K/mm3 (0-0.2); Basophils % 0.9 % (0.1-2.0); Calcium 9.2 mg/dl (8.4-10.2); Eosinophils # 0.2 K/mm3 (0.0-0.4); Glucose 110 mg/dl (74-100); Hematocrit 41.9 % (42.0-52.0); Hemoglobin 13.7 g/dL (14.1-18.0); Lymphocytes # 2.3 K/mm3 (0.7-4.5); Lymphocytes % 33.1 % (10-50); Mean Corpuscular HGB Conc 32.7 g/dL (31.8-35.4); Mean Corpuscular Volume 88.8 fl (80-94); Mean Platelet Volume 7.3 fl (7.4-10.4); Monocytes # 0.6 K/mm3 (0.1-1.0); Monocytes % 8.2 % (1.7-9.3); Neutrophils # 3.9 K/mm3 (1.8-7.8); Neutrophils % 54.9 % (37.0-80.0); Platelet Count 286 K/mm3 (142-424); Red Blood Count 4.71 M/mm3 (4.60-6.20); Red Cell Distribution Width 13.4 % (11.5-17.5)
[2022-10-02 13:48] LABS: CATHL Venous O2 SAT 80.1 % (75-80)
[2022-10-02 13:50] LABS: CATHL Activated Clotting Time > 400 SEC (74-125)
[2022-10-02 13:51] LABS: CATHL Activated Clotting Time 319 SEC (74-125)
--- NOTE | 2022-10-02 14:01 | HMH.PHACL ---
[facility] Senior Benefits Specialist Discharge Med Wide Load Escort: Manjeet Siddiqui has received discharge medication counseling on the following medications: ASPIRIN [address] DAILY CLOPIDOGREL 75 MG DAILY METOPROLOL SUCCINATE 25 MG DAILY RAMIPRIL 10 MG DAILY ROSUVASTATIN 20 MG DAILY
--- NOTE | 2022-10-02 15:25 | SUR.PHASEII ---
Pt was d/c home and down the end of the parking not and returned to cathlab because he began bleeding from cath site, manual pressure applied to write for 10 minutes, bleeding stopped and redressed
--- NOTE | 2022-10-02 15:26 | SUR.PHASEII ---
Instructions re-discussed with patient if wrist begins to bleed
== END 2022-10-02 15:20 | disposition home or self-care (01) ==
PROVIDERS: PCP Nurse Practitioner Family; Visit Provider Internal Medicine
DX: I25.119 Atherosclerotic heart disease of native coronary artery with unspecified angina pectoris (principal); Z95.5 Presence of coronary angioplasty implant and graft; I10 Essential (primary) hypertension; J44.9 Chronic obstructive pulmonary disease, unspecified; I25.42 Coronary artery dissection
CPT/HCPCS: 80048; 82810; 85025; 85347; 92928; 92929; 93460; 93461; 99152; 99153; C1725; C1769; C1874; C1876; C1894; C9600; C9601; J1644; Q9967

== ENCOUNTER 2022-10-22 10:02 | Outpatient (RCR) | payer MEDICARE, SELFPAY | END 2022-11-21 11:45 | disposition home or self-care (01) | LOC: PT 10:02 | PROVIDERS: Visit Provider Internal Medicine | DX: I25.10 Atherosclerotic heart disease of native coronary artery without angina pectoris (principal); Z95.5 Presence of coronary angioplasty implant and graft | CPT/HCPCS: 93798 ==

== ENCOUNTER 2023-02-08 18:27 | Emergency (ER) | payer OTHER, MEDICARE, SELFPAY ==
[2023-02-08 18:43] VITALS: BMI 29.4
[2023-02-08 18:45] VITALS: BP 168/96; PULSE 89; RESP 19; TEMP 36.9; O2SAT 96
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
[2023-02-08 19:09] LABS: Chloride 102 mmol/L (98-107); Potassium 3.9 mmoL/L (3.5-5.1); Sodium 141 mmol/L (136-145)
[2023-02-08 19:10] LABS: POC Glucose,Bedside 129 (70-110)
[2023-02-08 19:10] LABS: Basophils # 0.1 K/mm3 (0-0.2); Basophils % 0.8 % (0.1-2.0); Eosinophils # 0.2 K/mm3 (0.0-0.4); Eosinophils % 1.9 % (0.1-12.0); Hematocrit 40.3 % (42.0-52.0); Lymphocytes # 2.5 K/mm3 (0.7-4.5); Lymphocytes % 26.8 % (10-50); Mean Corpuscular HGB Conc 34.7 g/dL (31.8-35.4); Mean Corpuscular Volume 89.5 fl (80-94); Mean Platelet Volume 7.8 fl (7.4-10.4); Monocytes # 0.6 K/mm3 (0.1-1.0); Monocytes % 5.8 % (1.7-9.3); Neutrophils # 6.1 K/mm3 (1.8-7.8); Neutrophils % 64.8 % (37.0-80.0); Platelet Count 264 K/mm3 (142-424); Red Blood Count 4.51 M/mm3 (4.60-6.20); Red Cell Distribution Width 13.8 % (11.5-17.5); White Blood Count 9.5 K/mm3 (4.8-10.8)
[2023-02-08 19:12] LABS: Alanine Aminotransferase 30 U/L (12-78); Albumin Level 4.9 g/dl (3.5-5.0); Albumin/Globulin Ratio 1.6 (1.1-1.8); Alkaline Phosphatase 78 U/L (38-126); Anion Gap 12.9 mEq/L (5-15); Aspartate Amino Transferase 36 U/L (17-59); Bilirubin,Total 0.2 mg/dl (0.2-1.3); Blood Urea Nitrogen 21 mg/dl (9-20); Calcium 9.1 mg/dl (8.4-10.2); Carbon Dioxide 30 mmol/L (22.0-30.0); Creatinine Clearance Estimated 79 mL/min (50-200); Estimated Glomerular Filt Rate 56 ml/min (>60); GFR (African American) 68 ML/MIN (>60); Glucose 127 mg/dl (74-100); Total Protein,Serum 7.9 g/dl (6.3-8.2)
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
[2023-02-08 19:15] LABS: Activated Partial Thrombo Time 26.6 seconds (22.8-30.6); INR 0.92 (0.9-1.1)
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
[2023-02-08 19:39] LABS: Lipase 143 U/L (23-300)
--- NOTE | 2023-02-08 19:46 | PC.NURSE ---
pt stated he does not feel like he needs the morphine at this time.
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
[2023-02-08 21:58] VITALS: BP 177/79; PULSE 18; RESP 18; TEMP 36.5; O2SAT 97
== END 2023-02-08 21:59 | disposition home or self-care (01) ==
PROVIDERS: Emergency Provider Emergency Medicine; PCP Nurse Practitioner Family
DX: M54.9 Dorsalgia, unspecified (principal); M79.622 Pain in left upper arm; V49.00XA Driver injured in collision with unspecified motor vehicles in nontraffic accident, initial encounter; I10 Essential (primary) hypertension; I25.10 Atherosclerotic heart disease of native coronary artery without angina pectoris; Z87.891 Personal history of nicotine dependence
CPT/HCPCS: 70450; 70496; 70498; 71045; 71275; 72125; 72128; 72131; 72170; 73030; 73060; 73080; 74174; 80053; 82962; 83690; 85025; 85610; 85730; 96374; 96375; 99285; J2405; Q9967

== ENCOUNTER 2023-05-27 13:31 | Outpatient (CLI) | payer MEDICARE, SELFPAY ==
--- NOTE | 2023-05-27 13:37 | XR_ITS ---
FINAL REPORT CLINICAL HISTORY: knee pain FINDINGS: AP, lateral and oblique views of the right knee were obtained. There is no prior exam for comparison. There is no acute osseous abnormality of the right knee. There is degenerative joint disease. The soft tissues are normal. Moderate joint effusion is identified. IMPRESSION: Degenerative joint disease and moderate effusion. Reviewed, Interpreted and Dictated by Marie Carrillo MD Transcribed by Ariana Hawley Authenticated and [facility]
--- NOTE | 2023-05-27 13:37 | XR_ITS ---
FINAL REPORT CLINICAL HISTORY: knee pain FINDINGS: AP, lateral and oblique views of the left knee were obtained. There is no prior exam for comparison. There is no acute osseous abnormality of the left knee. There is degenerative joint disease. The soft tissues are normal. No joint effusion is identified. IMPRESSION: Degenerative joint disease. Reviewed, Interpreted and Dictated by Marie Carrillo MD Transcribed by Ariana Hawley Authenticated and [facility]
== END 2023-05-27 23:59 ==
LOC: RAD 13:33
PROVIDERS: PCP Nurse Practitioner Family; Visit Provider Orthopaedic Surgery
DX: M25.561 Pain in right knee (principal); M25.562 Pain in left knee
CPT/HCPCS: 73562

== ENCOUNTER 2023-07-16 08:20 | Outpatient (CLI) | payer MEDICARE, SELFPAY ==
[2023-07-16 09:31] LABS: Alanine Aminotransferase 22 U/L (12-78); Albumin Level 4.2 g/dl (3.5-5.0); Alkaline Phosphatase 81 U/L (38-126); Aspartate Amino Transferase 27 U/L (17-59); Bilirubin,Direct 0.3 mg/dl (0.0-0.4); Bilirubin,Total 0.3 mg/dl (0.2-1.3); Chol/HDL Ratio 1.8 (1-3.5); Cholesterol 126 mg/dl (140-200); HDL Cholesterol 69 mg/dl (40-60); Total Protein,Serum 6.4 g/dl (6.3-8.2); Triglycerides 88 mg/dl (30-150); VLDL Cholesterol 18 mg/dL (0-40)
[2023-07-16 09:43] LABS: Direct LDL Cholesterol 54.92 mg/dL (100-129)
== END 2023-07-16 23:59 | disposition home or self-care (01) ==
LOC: LAB 08:22
PROVIDERS: PCP Nurse Practitioner Family; Visit Provider Nurse Practitioner
DX: I10 Essential (primary) hypertension (principal); Z95.5 Presence of coronary angioplasty implant and graft; F17.200 Nicotine dependence, unspecified, uncomplicated; I25.10 Atherosclerotic heart disease of native coronary artery without angina pectoris; E78.5 Hyperlipidemia, unspecified; I11.9 Hypertensive heart disease without heart failure
CPT/HCPCS: 36415; 80061; 80076

== ENCOUNTER 2023-08-03 07:08 | Outpatient (CLI) | payer MEDICARE, SELFPAY ==
--- NOTE | 2023-08-03 07:08 | NM_ITS ---
APPROVED REPORT Exam: Nuclear Stress Test Indication: SOB, HTN, High cholesterol, Tobacco use, CAD Patient Location: Outpatient Stress Tech: Alisha Brown NM Tech:Giovanna Minor, ARRT, RT (R)(N) Ht: 5 ft 8 in Wt: 205 lbs HR: 78 bpm BP: 152/80 mmHg BSA: 2.07 m2 TID: 1.22 BMI: 31.1 History: SOB, HTN, High cholesterol, Tobacco use, CAD Procedure: Patient exercised on Devendra protocol 7:31 minutes and sec, resting heart rate 78 bpm, resting blood pressure 152/80 mmHg, with exercise maximum heart rate achived was 130 bpm which is 82 % of the maximum predicted heart rate and blood pressure was 200/85 mmHg. Test was stopped due to SOB. Patient denied any complaint of chest pain. Patient has exercise capacity, achieved 9.0 METs of workload on treadmill, the blood pressure response to exercise was . Cardiac Stress and Resting SPECT Images: Cardiac Stress and Resting SPECT images were obtained using technetium 99m Myoview 31.4 mCi stress and 10.14 mCi at rest. Resting and stress imaging in supine and prone positions demonstrate a large sized, moderate, fixed perfusion defect in the inferior LV wall. There is increased transient ischemic dilatation ratio (TID 1.22), suggestive of possible multivessel disease or balanced ischemia. Gated imaging demonstrates normal global LV systolic function. There is mild hypokinesis of the basal inferior LV wall. LVEF is calculated at 56%. Conclusion: Large sized, moderate, fixed perfusion defect in the inferior LV wall. There is increased transient ischemic dilatation ratio (TID 1.22), suggestive of possible multivessel disease or balanced ischemia. Gated imaging demonstrates normal global LV systolic function. There is mild hypokinesis of the basal inferior LV wall. LVEF is calculated at 56%. Electronically signed by : Molly Partida MD 08/05/2023 11:22:55
[2023-08-03] MEDS: ISOTOPE MYOVIEW (PER STUDY) 1 DOSE IV (08:41)
[2023-08-03] MEDS: SODIUM CHLORIDE 0.9% 10ML SYR (RAD ONLY) 10 ML IV ×2 (08:41)
--- NOTE | 2023-08-03 09:30 | CA_ITS ---
APPROVED REPORT Exam: Exercise Treadmill Technologist: Alisha Brown Ht: 5 ft 9 in Wt: 208 lbs BSA: 2.10 m2 HR: 71 bpm BP: 152/80 mmHg Rhythm: NSR Indications: CAD, Chest pain Medical History Medications: Aspirin,,,,, Gabapentin,,,,, Pantoprazole,,,,, Metoprolol Succinate,,,,, Ramipril,,,,, PERCOCET,,,,, Albuterol,,,,, Montelukast,,,,, CloPIdogrel,,,,, Ibuprofen,,,,, LoraTidine,,,,, Hydroxyzine,,,,, Stress Test Details Test: Manual Treadmill HR Resting HR: 78 bpm Max Heart Rate (APMHR): 159 bpm Max HR Achieved: 130 bpm Target HR (85% APMHR): 135 bpm % of APMHR: 82 Recovery HR: 84 bpm BP Resting BP: 152.0/80.0 mmHg Max BP: 200.0/85.0 mmHg Recovery BP: 142.0/69.0 mmHg ECG Resting ECG: Normal sinus rhythm Stress ECG: No significant ST changes Arrhythmia: PVCs Clinical Exercise duration: 07:31 min Highest Stage Achieved: Exercise capacity: 9.0 METs Stress ECG Conclusion Injected at 85% of target due to hip pain. Symptoms: Shortness of air. No chest pain. Arrhythmias/Ectopy: Frequent PVCs ST-T Changes: No significant ST changes Conclusion: Unremarkable Lexiscan stress test. Myoview images reported separately. Test Summary REST . . . . . . . Sitting REST . . . . . . . Standing REST 17:39 0.0 0.0 78 . 152/ 80 . . Stage 1 01:00 10.0 1.7 87 . . . . Stage 1 02:00 10.0 1.7 93 . . . . Stage 1 03:00 10.0 1.7 95 . 160/ 82 . . Stage 2 01:00 12.0 2.5 103 . . . . Stage 2 02:00 12.0 2.5 107 . . . . Stage 2 03:00 12.0 2.5 113 . 168/ 88 . . Stage 3 . . . . . . . Protocol changed to Manual Treadmill Stage 3 . . . . . . . Myoview Injected Stage 3 01:00 14.0 3.0 122 . . . . Stage 3 01:31 14.0 3.0 130 . . . Stop exercise at 07:31 RECOVERY 01:00 0.0 0.0 119 . . . . RECOVERY 02:00 0.0 0.0 116 . . . . RECOVERY 03:00 0.0 0.0 104 . 200/ 85 . . RECOVERY 04:00 0.0 0.0 99 . 188/ 80 . . RECOVERY 05:00 0.0 0.0 87 . 188/ 80 . . RECOVERY 05:57 0.0 0.0 89 . 142/ 69 . . Electronically signed by : Molly Partida MD 08/05/2023 11:21:19
== END 2023-08-03 23:59 | disposition home or self-care (01) ==
LOC: RAD 07:08
PROVIDERS: PCP Nurse Practitioner Family; Visit Provider Nurse Practitioner Family
DX: I25.118 Atherosclerotic heart disease of native coronary artery with other forms of angina pectoris (principal); R61 Generalized hyperhidrosis; R07.89 Other chest pain
CPT/HCPCS: 78452; 93017; 93018; A9502

== ENCOUNTER 2023-08-12 08:26 | Day surgery (SDC) | payer MEDICARE, SELFPAY ==
[2023-08-12] VITALS (18 sets, daily range): BP systolic 128–161; BP diastolic 46–90; PULSE 54–72; RESP 14–18; TEMP 36.6; O2SAT 94–98; BMI 30.8
--- NOTE | 2023-08-12 07:34 | IR_ITS ---
APPROVED REPORT Patient Location: Outpatient PROCEDURES Left heart catheterization Left ventriculogram Selective coronary angiogram INDICATION Abnormal Myoview, Angina pectoris, History of left main coronary stenting Informed consent was obtained prior to the procedure. COMPLICATIONS None Estimated Blood Loss: Less than 10 mls TECHNIQUE One percent lidocaine was used to anesthetize the right groin. The right femoral artery was accessed via the Seldinger technique. A 4-Indian sheath was placed in the right femoral artery. The JL-4 and JR-4 catheter was also used to perform left heart catheterization left ventriculogram and selective coronary angiogram. At the end of the procedure the patient was transferred to the post-op holding area in stable condition for arterial sheath removal. ANGIOGRAPHIC RESULTS The left main artery Has an ostial 30 to 40% stenosis followed by a stent which is widely patent and extends into the LAD. There is excellent transitioning into the LAD The left anterior descending artery Has a stent originating from the left main artery which extends throughout the proximal and into the mid segment. The stent is widely patent with with mild distal concentric 30% in-stent restenosis with excellent distal transitioning The circumflex artery Has a stent which tease off the left main artery and is widely patent with 30 to 40% ostial stenosis The right coronary artery Is a dominant vessel with mild 20% proximal stenosis and distal 20 to 30% stenoses The HENRY ventriculogram reveals Normal 65% The left ventricular end-diastolic pressure 25 to 30 mmHg IMPRESSION Widely patent coronary arteries as described above Elevated LVEDP consistent with diastolic dysfunction Normal ejection fraction PLAN 1. Transient ischemic dilatation on stress test almost certainly stems from elevated LVEDP which requires treatment 2. Recommend avoidance of tobacco products 3. Medical management 4. Risk factor modification 5. Lasix and spironolactone will be added for HFpEF treatment Electronically signed by : Campbell Macias MD 08/12/2023 15:10:43
[2023-08-12 09:04] LABS: Basophils # 0.1 K/mm3 (0-0.2); Basophils % 1.2 % (0.1-2.0); Eosinophils # 0.2 K/mm3 (0.0-0.4); Eosinophils % 2.7 % (0.1-12.0); Hematocrit 40.7 % (42.0-52.0); Hemoglobin 13.3 g/dL (14.1-18.0); Lymphocytes # 1.9 K/mm3 (0.7-4.5); Lymphocytes % 23.2 % (10-50); Mean Corpuscular HGB Conc 32.8 g/dL (31.8-35.4); Mean Corpuscular Volume 91.5 fl (80-94); Mean Platelet Volume 7.8 fl (7.4-10.4); Monocytes # 0.5 K/mm3 (0.1-1.0); Monocytes % 5.6 % (1.7-9.3); Neutrophils # 5.6 K/mm3 (1.8-7.8); Neutrophils % 67.4 % (37.0-80.0); Platelet Count 312 K/mm3 (142-424); Red Blood Count 4.44 M/mm3 (4.60-6.20); Red Cell Distribution Width 14.5 % (11.5-17.5); White Blood Count 8.2 K/mm3 (4.8-10.8)
[2023-08-12 09:17] LABS: Blood Urea Nitrogen 20 mg/dl (9-20); Calcium 9.7 mg/dl (8.4-10.2); Carbon Dioxide 26 mmol/L (22.0-30.0); Chloride 106 mmol/L (98-107); Creatinine Clearance Estimated 104 mL/min (50-200); Estimated Glomerular Filt Rate 86 ml/min (>60); GFR (African American) 104 ML/MIN (>60); Glucose 108 mg/dl (74-100); Sodium 141 mmol/L (136-145)
[2023-08-12] MEDS: HEPARIN 1,000 UNITS/ML 10ML VIAL (CATH LAB) 10000 UNIT IV (10:33)
[2023-08-12] MEDS: VERAPAMIL 2.5MG/ML 2ML VIAL 2.5 MG IV (10:33)
[2023-08-12] MEDS: NITROGLYCERIN 800MCG/8ML SYR (CATH LAB) 800 MCG IA (10:33)
[2023-08-12] MEDS: diphenhydrAMINE 50MG/ML VIAL 50 MG IV (10:33)
[2023-08-12] MEDS: HEPARIN 1,000 UNITS/500ML NS (CATH LAB) 3000 UNIT IV (10:34)
[2023-08-12] MEDS: 0.9 % SODIUM CHLORIDE 500 ML 25 ML IV (10:34)
[2023-08-12] MEDS: LIDOCAINE 1% 10ML MDV 20 ML IJ (10:34)
[2023-08-12] MEDS: MIDAZOLAM HCL 1MG/1ML 5ML VIAL 1 MG IV (11:14)
[2023-08-12] MEDS: FENTANYL 100MCG/2ML VIAL 50 MCG IV (11:15)
[2023-08-12] MEDS: OXYCODONE 5MG W/APAP 325MG TABLET 2 EACH PO (13:05)
[2023-08-12] MEDS: IOPAMIDOL-370 (76%);100ML BOTTLE 50 ML IV (15:03)
== END 2023-08-12 14:36 | disposition home or self-care (01) ==
PROVIDERS: PCP Nurse Practitioner Family; Visit Provider Internal Medicine
DX: R06.02 Shortness of breath (principal); R61 Generalized hyperhidrosis; I31.1 Chronic constrictive pericarditis; I25.118 Atherosclerotic heart disease of native coronary artery with other forms of angina pectoris; E78.2 Mixed hyperlipidemia; Z95.5 Presence of coronary angioplasty implant and graft; I10 Essential (primary) hypertension; R53.83 Other fatigue; F17.210 Nicotine dependence, cigarettes, uncomplicated; Z79.899 Other long term (current) drug therapy; J44.9 Chronic obstructive pulmonary disease, unspecified
CPT/HCPCS: 80048; 85025; 93458; 99152; 99153; C1725; C1769; J1644; Q9967

== ENCOUNTER 2023-09-16 09:31 | Outpatient (CLI) | payer MEDICARE, SELFPAY ==
[2023-09-16 11:31] LABS: Anion Gap 14.7 mEq/L (5-15); Blood Urea Nitrogen 31 mg/dl (9-20); Calcium 9.9 mg/dl (8.4-10.2); Carbon Dioxide 28 mmol/L (22.0-30.0); Chloride 102 mmol/L (98-107); Estimated Glomerular Filt Rate 56 ml/min (>60); GFR (African American) 68 ML/MIN (>60); Glucose 96 mg/dl (74-100); Potassium 4.7 mmoL/L (3.5-5.1); Sodium 140 mmol/L (136-145)
== END 2023-09-16 23:59 | disposition home or self-care (01) ==
LOC: LAB 09:32
PROVIDERS: PCP Nurse Practitioner Family; Visit Provider Nurse Practitioner Family
DX: I25.118 Atherosclerotic heart disease of native coronary artery with other forms of angina pectoris (principal); I11.0 Hypertensive heart disease with heart failure; I50.30 Unspecified diastolic (congestive) heart failure; F17.210 Nicotine dependence, cigarettes, uncomplicated
CPT/HCPCS: 36415; 80048

== ENCOUNTER 2024-01-20 13:11 | Outpatient (CLI) | payer MEDICARE, SELFPAY ==
[2024-01-20 18:49] LABS: Anion Gap 14.5 mEq/L (5-15); Blood Urea Nitrogen 39 mg/dl (9-20); Calcium 9.4 mg/dl (8.4-10.2); Carbon Dioxide 20 mmol/L (22.0-30.0); Chloride 107 mmol/L (98-107); Estimated Glomerular Filt Rate 62 ml/min (>60); GFR (African American) 74 ML/MIN (>60); Glucose 129 mg/dl (74-100); Potassium 4.5 mmoL/L (3.5-5.1); Sodium 137 mmol/L (136-145)
== END 2024-01-20 23:59 | disposition home or self-care (01) ==
LOC: LAB.DROPOF 01-21 13:11
PROVIDERS: PCP Nurse Practitioner Family; Visit Provider Nurse Practitioner Family
DX: R53.83 Other fatigue (principal)
CPT/HCPCS: 80048

== ENCOUNTER 2024-08-18 09:04 | Outpatient (CLI) | payer MEDICARE, SELFPAY ==
[2024-08-18 09:22] LABS: Basophils # 0.1 K/mm3 (0-0.2); Basophils % 0.9 % (0.1-2.0); Eosinophils # 0.2 Kmm3 (0.0-0.4); Eosinophils % 2.4 % (0.1-12.0); Hematocrit 39.3 % (42.0-52.0); Hemoglobin 12.9 g/dL (14.1-18.0); Immature Granulocytes # 0.03 10^3uL; Immature Granulocytes % 0.4 %; Lymphocytes # 2.4 K/mm3 (0.7-4.5); Lymphocytes % 29.4 % (10-50); Mean Corpuscular HGB Conc 32.8 g/dL (31.8-35.4); Mean Corpuscular Hemoglobin 29.3 pg (27.0-31.2); Mean Corpuscular Volume 89.3 fl (80-94); Monocytes # 0.8 K/mm3 (0.1-1.0); Monocytes % 9.7 % (1.7-9.3); Neutrophils # 4.7 K/mm3 (1.8-7.8); Neutrophils % 57.2 % (37.0-80.0); Nucleated Red Blood Cells # 0 10^3/uL; Nucleated Red Blood Cells % 0 %; Platelet Count 268 K/mm3 (142-424); Red Cell Distribution Width 13.6 % (11.5-17.5); Red Cell Distribution Width-SD 44.3 fL; White Blood Count 8.2 K/mm3 (4.8-10.8)
[2024-08-18 09:33] LABS: Alanine Aminotransferase 18 U/L (12-78); Albumin Level 4.5 g/dl (3.5-5.0); Alkaline Phosphatase 60 U/L (38-126); Anion Gap 9.7 mEq/L (5-15); Aspartate Amino Transferase 23 U/L (17-59); Bilirubin,Direct 0.2 mg/dl (0.0-0.4); Bilirubin,Indirect 0.2 mg/dL (0.0-0.9); Bilirubin,Total 0.4 mg/dl (0.2-1.3); Bilirubin,Unconjugated 0.2 mg/dL (0.0-1.1); Blood Urea Nitrogen 22 mg/dl (9-20); Calcium 9.4 mg/dl (8.4-10.2); Carbon Dioxide 28 mmol/L (22.0-30.0); Chloride 106 mmol/L (98-107); Chol/HDL Ratio 2.2 (1-3.5); Cholesterol 108 mg/dl (140-200); Estimated Glomerular Filt Rate 86 ml/min (>60); GFR (African American) 103 ML/MIN (>60); Glucose 96 mg/dl (74-100); HDL Cholesterol 49 mg/dl (40-60); Magnesium 1.8 mg/dl (1.6-2.3); Potassium 4.7 mmoL/L (3.5-5.1); Sodium 139 mmol/L (136-145); Triglycerides 90 mg/dl (30-150); VLDL Cholesterol 18 mg/dL (0-40)
[2024-08-18 09:44] LABS: Direct LDL Cholesterol 41.95 mg/dL (100-129)
[2024-08-18 09:51] LABS: Troponin I < 0.01 ng/ml (0.00-0.034)
[2024-08-18 10:06] LABS: Thyroid Stimulating Hormone 3.45 uIU/mL (0.465-4.68)
[2024-08-18 10:20] LABS: Free T4 (Free Thyroxine) 0.94 ng/dl (0.78-2.19)
== END 2024-08-18 23:59 | disposition home or self-care (01) ==
LOC: LAB 09:05
PROVIDERS: PCP Nurse Practitioner Family; Visit Provider Nurse Practitioner Family
DX: I20.89 Other forms of angina pectoris (principal); I10 Essential (primary) hypertension; R94.39 Abnormal result of other cardiovascular function study; R53.83 Other fatigue; R06.02 Shortness of breath
CPT/HCPCS: 36415; 80048; 80061; 80076; 83735; 84439; 84443; 84484; 85025

== ENCOUNTER 2024-09-08 09:39 | Outpatient (CLI) | payer MEDICARE, SELFPAY ==
--- OUTSIDE RECORDS SUMMARY | 2024-09-08 09:48 | XMS_ITS | Clinical Summary ---
Author Organization [facility] [place] [address] Care Team Providers Care Strategic Partner Development Manager Name Role Phone Unavailable Primary Care Provider Unavailabl e Social History Tobacco Use Types Packs/Day Years Used Date Smoking Tobacco: Never Assessed Sex and Gender Information Value Date Recorded Sex Assigned at Not on file Legal Sex Male 7:42 PM EDT Gender Identity Not on file Sexual Orientation Not on file Last Filed Vital Signs Vital Sign Reading Time Taken Comments Blood Pressure 171/96 09/10/2022 10:17 AM EDT Pulse 67 09/10/2022 10:17 AM EDT Temperature - - Respiratory Rate - - Oxygen Saturation - - Inhaled Oxygen Concentration - - Weight 90.7 kg (200 lb) 09/10/2022 10:17 AM EDT Height 172.7 cm (5' 8 ) 09/10/2022 10:17 AM EDT Body Mass Index 30.41 09/10/2022 10:17 AM EDT Plan of Treatment Health Maintenance Due Date Last Done Comments [facility]-Depression Screening 1960 [facility]-Infant/Child/Adol SDOH Screenings 1960 [facility]- SDOH Screenings 1980 [facility]-Adult SDOH Screenings 1980 [facility]-DTaP,Tdap,and Td Vaccines (1 - Tdap) 1981 CT Colonography 2007 Colonoscopy 2007 FIT-DNA 2007 FIT 2007 FOBT 2007 Sigmoidoscopy 2007 [facility]-Colorectal Cancer Screening 2007 [facility]-Pneumococcal Vaccine: 50+ Years (1 of 1 - PCV) 2012 [facility]-Zoster Vaccines (1 of 2) 2012 EAB-WILKH-15 Vaccine ( season) 2023 01/24/2022, 10/22/2021, 03/13/2021, Additional history exists [facility]-Influenza Vaccine (Season Ended) 2024 12/04/2021, 12/27/2020, 12/28/2019, Additional history exists [facility]-RSV Vaccine: 60+ Years or (1 - 1-dose 75+ series) 2037 [facility]-Hepatitis A Vaccines Aged Out 08/29/2018 No longer eligible based on patient's age to complete this topic HPV Vaccines Aged Out No longer eligi ble based on patient's age to complete this topic [facility]-HIB Vaccines Aged Out No longer e ligible based on patient's age to complete this topic [facility]-IPV Vaccines Aged Out No longer e ligible based on patient's age to complete this topic [facility]-Rotavirus Vaccines Aged Out No lo nger eligible based on patient's age to complete this topic Insurance [employer]
--- OUTSIDE RECORDS SUMMARY | 2024-09-08 09:48 | XMS_ITS | Encounter Summary ---
Author Organization [employer] Address [address] [place] [address] Care Team Providers Care Cooper Apprentice Name Role Phone Unavailable Primary Care Provider Unavailabl e Encounter Details Date Type Department Care Team (Late st Contact Info) Description 03/28/2019 Transcribed Document [facility] [place] [address] [place] [address] ProviderRoberta MD [address] [place] [address] Social History Tobacco Use Types Packs/Day Years Used Date Smoking Tobacco: Never Assessed Sex and Gender Information Value Date Recorded Sex Assigned at Not on file Legal Sex Male 4:21 PM CDT Gender Identity Not on file Sexual Orientation Not on file documented as of this encounter Miscellaneous Notes * Cerner Conversion Note - Roberta ProviderMD - 03/28/2019 9:42 AM CONTAINER MAKER Evaluation, Occupational Therapy Entered On: 03/28/2019 15:07 EST Performed On: 03/28/2019 14:22 EST by UNA JACOBSEN OTR/L General Information, OT General Information Comment, OT : pain pump revision UNA JACOBSEN OTR/L - 03/28/2019 15:07 EST Visit Type, OT : Initial evaluation UNA JACOBSEN OTR/L - 03/28/2019 15:06 EST Patient Orders : Order Date Order Ordering 03/28/2019 09:42 Occupational Therapy Evaluation and Treatme Ordered By: DOMENICO MEZA MD-[facility] Active Diagnoses : No Qualifying Diagnoses Admission Date : 03/28/2019 06:42 UNA JACOBSEN OTR/L - 03/28/2019 15:07 EST Co-treated by, OT : Physical Therapist UNA JACOBSEN OTR/L - 03/28/2019 15:06 EST Personal Devices : Personal Devices No Devices Recorded Assistive Devices : Assistive Devices No Devices Recorded UNA JACOBSEN OTR/Micheal - 03/28/2019 15:07 EST General Status Patient Received Status : Up in restroom Treatment Start Time : 03/28/2019 14:12 EST Patient Left Status : Up in chair, RN/PCT informed, All needs met and within reach RN/PCT Informed Comment : NEAL menendez Treatment End Time : 03/28/2019 14:22 EST Treatment Time : 10 Minute(s) UNA JACOBSEN OTR/Micheal - 03/28/2019 15:07 EST History and Environment, OT Living Situation, Therapy : Home Persons Providing Information : Patient Home Equipment, Therapy : None Stairs : No UNA JACOBSEN OTR/Micheal - 03/28/2019 15:07 EST Prior LOF Bathing, OT : Independent Prior LOF Bed Mobility : Independent Prior LOF Upper Body Dressing, OT : Independent Prior LOF Lower Body Dressing, OT : Independent Prior LOF Toileting : Independent Prior LOF Transfer : Independent Prior LOF Grooming, OT : Independent Prior LOF for IADLs, OT : Independent UNA JACOBSEN OTR/Micheal - 03/28/2019 15:07 EST Upper Extremity Right UE Active ROM : WFL Right UE Strength : WFL Left UE Active ROM : WFL Left UE Strength : WFL UNA JACOBSEN OTR/Micheal - 03/28/2019 15:07 EST Self Care/Home Management, OT Self Feeding Assist Level, OT : Independent, complete Grooming Assist Level, OT : Independent, complete Bathing Assist Level, OT : Independent, complete Upper Body Dressing Assist Level, OT : Independent, complete Upper Body Dressing Device Comment, OT : Lower Body Dressing Assist Level, OT : Independent, complete Toileting Assist Level : Independent, complete Toilet Transfer Assist Level : Independent, complete UNA JACOBSEN OTR/Micheal - 03/28/2019 15:07 EST Functional Mobility Mobility Grid Bed Roll Left : Rehab Complete independence Bed Roll Right : Rehab Complete independence Bed Scooting : Rehab Complete independence Supine to Sit : Rehab Complete independence Sit to Stand : Rehab Complete independence Bed to Chair : Rehab Complete independence Chair to Bed : Rehab Complete independence Stand to Sit : Rehab Complete independence Sit to Supine : Rehab Complete independence UNA JACOBSEN OTR/L - 03/28/2019 15:07 EST Cognition Assessment, OT Orientation : Oriented x 4 UNA JACOBSEN YI/Micheal - 03/28/2019 15:07 EST Indication Assessment, OT Occupational Therapy Indicated : No Occupational Therapy Not Indicated : No skilled services indicated UNA JACOBSEN YI/Micheal - 03/28/2019 15:07 EST Plan of Care, OT OT Tx Plan/Goals Established w Patient : No JACOBSENUNAYI/Micheal - 03/28/2019 15:07 EST Treatment Note Subjective Comment : Agreeable Patient's Response to Treatment : pt tolerated fairly Additional Objective Information : pt up in bathroom. independent with transfer in room. Educated on chief diversity officer and LHS and shoe horn. Transfered a household distance Assessment : pt has no skilled OT needs Plan for Treatment : defer UNA JACOBSENYI/Micheal - 03/28/2019 15:07 EST Pain Assessment Pain Scaled Used : 0-10 Pain scale Pain Score During-Intervention : 0 JACOBSENBINHUNAYI ELMORE/Micheal - 03/28/2019 15:07 EST Image 1 - Images currently included in the form version of this document have not been included in the text rendition version of the form. Anticipated Discharge Needs, OT/PT Anticipated Discharge to : Home, independently UNA JACOBSENYI/Micheal - 03/28/2019 15:[address] [facility] Charg[facility] OT Eval Low Complexity : 1 UNA JACOBSENYI/L - 03/28/2019 15:07 EST documented in this encounter Plan of Treatment Not on file documented as of this encounter Visit Diagnoses Not on filedocumented in this encounter
--- OUTSIDE RECORDS SUMMARY | 2024-09-08 09:48 | XMS_ITS | Referral Summary ---
Author Organization [employer] Address [address] [place] [address] Care Team Providers Care Sports Physiologist Name Role Phone Unavailable Primary Care Provider Unavailabl e Social History Tobacco Use Types Packs/Day Years Used Date Smoking Tobacco: Never Assessed Sex and Gender Information Value Date Recorded Sex Assigned at Not on file Legal Sex Male 4:21 PM CDT Gender Identity Not on file Sexual Orientation Not on file Plan of Treatment Not on file
--- OUTSIDE RECORDS SUMMARY | 2024-09-08 09:48 | XMS_ITS | Encounter Summary ---
Author Organization [employer] Address [address] [place] [address] Care Team Providers Care Lieutenant Fire Fighter Name Role Phone Unavailable Primary Care Provider Unavailabl e Encounter Details Date Type Department Care Team (Late st Contact Info) Description 11/05/2019 Transcribed Document [facility] [place] Medicine [facility] [place] [address] ProviderRoberta MD [address] [place], [place] [id number] Social History Tobacco Use Types Packs/Day Years Used Date Smoking Tobacco: Never Assessed Sex and Gender Information Value Date Recorded Sex Assigned at Not on file Legal Sex Male 4:21 PM CDT Gender Identity Not on file Sexual Orientation Not on file documented as of this encounter Miscellaneous Notes * Cerner Conversion Note - Roberta Elizabeth MD - 11/05/2019 12:02 PM CDT Patient: MANJEET TREVINO Age: 59 Years Sex: Male : 1960 FOLLOW-UP Date of Service: 10/21/2019 CHIEF COMPLAINT: Low back pain, bilateral leg pain. HISTORY OF PRESENT ILLNESS: The patient is a 59 y/o male who returns to the Clinic today with a 19 year history significant for both low back pain and bilateral leg pain, being equal in severity. He states his knee pain is very problematic for him. He has yet to get the x-rays done of the knee secondary to the COVID-19 outbreak and fear of catching the virus. His pain is worse with bending at the waist and lifting. His pain is improved with alternating ice and heat therapy as well as the medication used from our facility. He reports his pain level today is a 2/10 on the numerical pain scale rating. He is getting 100% pain relief with Percocet 10/325 mg 5 times daily dosing. Nursing intake was reviewed and noted on today's visit. VITAL SIGNS: Vital signs are reviewed today. B/P: 161/97; Heart rate: 72; Respirations: 20; Oxygen saturation is 95% on room air; Height 5???8?? , weight 207 lbs. He has forgotten medicine this morning. HISTORY: Allergies to medications: He reports none. Social History: Marital status: The patient is currently . Current work status: Disabled. Illicit drug use: Denies. Current tobacco use: Nicotine use in the form of cigarettes 1 pack a day for greater than 40 years. Alcohol use: Denies. Caffeine use: Daily. Past Medical History: Osteoarthritis. Chickenpox. Heartburn. Pneumonia. Past Surgical History: Herniorrhaphy. Tonsillectomy. Past Family History: Cancer. Rheumatoid arthritis. Osteoarthritis. Acid reflux disease. REVIEW OF SYSTEMS: The patient's ten system review of systems was reviewed and on today's visit this individual has complaints of the following: General: Negative. Respiratory: Negative. Neurological: Negative. Gastrointestinal: Acid reflux. Musculoskeletal: Joint pain, stiffness, muscle aches and pains. Cardiovascular: Negative. Psychiatric: Anxiety. HEENT: Negative. Endocrine: Negative. Hematology: Negative. PHYSICAL EXAMINATION: Constitutional: The patient is conversant and well-nourished. Vital signs are reviewed today. Integumentary: Deferred. HEENT: Deferred. Neck: Deferred. Chest and Lung: Deferred. Cardiovascular: Deferred. Abdomen: Deferred. Peripheral Vascular: Deferred Neurologic: Deferred. Musculoskeletal: Deferred. Psychiatric: The patient is alert and oriented to self, time, and place today. The patient has a normal mood and affect on today's visit and there is no evidence of depression on the depression questionnaire that was completed today. DIAGNOSTIC STUDIES: Not present. MEDICAL DECISION MAKING: Stable. ASSESSMENT: 1. Chronic pain syndrome secondary to multisite osteoarthritis involving primarily the bilateral knees, left worse than the right. 2. Lumbar degenerative disc disease. 3. Lumbar spondylosis. 4. Lumbar facet arthropathy. 5. Nicotine misuse. PROCEDURE/TEST ORDERED: Not present. CURRENT PLAN: I am going to continue Mr. Trevino on his current medication regimen from our facility at this time. JACOB report was appropriate upon review today. I spent 3-5 minutes today discussing nicotine cessation with this individual at today's visit. We will see the patient back in the Clinic in 2 months for a follow-up appointment. BRIAN Valenzuela/charo documented in this encounter Plan of Treatment Not on file documented as of this encounter Visit Diagnoses Not on filedocumented in this encounter
--- OUTSIDE RECORDS SUMMARY | 2024-09-08 09:48 | XMS_ITS | Clinical Summary ---
Author Organization [facility] Address [address] [place], [place] [address] [address] Care Team Providers Care Smoke Inspector Name Role Phone Other, Physician Fabrice CRUZ Primary Care Provi abdiaziz Unavailable Allergies No known active allergies Medications sodium chloride 0.9% SOLN 100 mL with morphine 10 MG/ML SOLN 100 mg 8.8 mg/hr by Intrathecal route continuous. Active trazodone (DESYREL) 100 MG TABS Take 100 mg by mouth at bedtime. Active sertraline (ZOLOFT) 100 MG TABS Take 100 mg by mouth 2 (two) times daily. Active esomeprazole (NEXIUM) 40 MG CPDR Take 40 mg by mouth every morning before breakfast. Active Multiple Vitamins-Minera ls (V-C FORTE) CAPS Take 1 capsule by mouth daily. Active furosemide (LASIX) 20 MG TABS Take 25 mg by mouth 2 (two) times daily. Active Testosterone (ANDROGEL PUMP) 1.25 GM/ACT (1%) GEL Apply 2 g topically daily. Active oxycodone (OXYCONTIN) 20 MG TB12 Take 20 mg by mouth every 12 (twelve) hours. Active oxycodone-aceta minophen (PERCOCET) 7.5-325 MG TABS Take 1 tablet by mouth 3 (three) times daily. Active diazepam (VALIUM) 10 MG TABS Take 10 mg by mouth 3 (three) times daily as needed. Active potassium chloride (KLOR-CON) 10 MEQ TBCR Take 10 mEq by mouth daily. Active Social History Tobacco Use Types Packs/Day Years Used Date Smoking Tobacco: Every Day Alcohol Use Standard Drinks/Week Comments Yes 0.8 (1 standard drink = 0.6 oz p ure alcohol) rare Sex and Gender Information Value Date Recorded Sex Assigned at Not on file Legal Sex Male 7:07 PM EDT Gender Identity Not on file Sexual Orientation Not on file Plan of Treatment Health Maintenance Due Date Last Done Comments Hepatitis C Screening 1960 DTap,Tdap,and Td (1 - Tdap) 1973 Colonoscopy 2007 PSA YEARLY 2012 Pneumococcal 50+ (1 of 1 - PCV) 2012 Shingrix (#1) 2012 Influenza Vaccine (Season Ended) 2024 RSV Vaccine (60+ or ) (1 - 1-dose 75+ series) 2037 HPV Aged Out No longer eligi ble based on patient's age to complete this topic Meningococcal conjugate lewis nt 4 (MCV4) Aged Out No longer eligible b ased on patient's age to complete this topic RSV Immunization (<20 months) Aged Out No longer eligible based on patient's age to complete this topic Insurance Care Teams Smoke Inspector Relationship Specialty Start Date End Date Other, Physician OutMD kristie PCP - General Internal Medicine 04/20/12
--- OUTSIDE RECORDS SUMMARY | 2024-09-08 09:48 | XMS_ITS | Encounter Summary ---
Author Organization [employer] Address [address] [place] [address] Care Team Providers Care Facilities Project Manager Name Role Phone Unavailable Primary Care Provider Unavailabl e Encounter Details Date Type Department Care Team (Late st Contact Info) Description 03/29/[address] [facility] [place] Family Medicine [address] [place] [address] ProviderRoberta MD [address] [place], [place] [id number] Social History Tobacco Use Types Packs/Day Years Used Date Smoking Tobacco: Never Assessed Sex and Gender Information Value Date Recorded Sex Assigned at Not on file Legal Sex Male 4:21 PM CDT Gender Identity Not on file Sexual Orientation Not on file documented as of this encounter Miscellaneous Notes * Cerner Conversion Note - Historical ProviderMD - 03/29/2019 10:44 AM SENIOR DATA ARCHITECT UM Authorization Entered On: 03/29/2019 10:46 EST Performed On: 03/29/2019 10:44 EST by Nuria Molina Rn-Utilization Review Primary Insurance Authorization Authorization and Policy Numbers : Insurance 1 Health Plan: [facility] MEDIC[facility] REPL Policy Number: [id number] Authorization Number: [id number] Insurance Primary Name : [employer] MEDICARE REPL Policy Number: [id number] Authorization Status-Primary : Opo status approv Authorized Service Begin Date-Primary : 03/28/2019 EST Observation Authorization Nbr-Primary : [id number] Authorization Comments-Primary : op auth per star notes Historical Authorization Comments-Primary : No Authorization Comments Found Nuria Molina Rn-Utilization Review - 03/29/2019 10:44 EST Electronically signed by Iris [facility] Conversion Grades 1 Through 5 Teacher Cerner at 07/17/2022 3:27 PM CDT documented in this encounter Plan of Treatment Not on file documented as of this encounter Visit Diagnoses Not on filedocumented in this encounter
--- OUTSIDE RECORDS SUMMARY | 2024-09-08 09:48 | XMS_ITS | Referral Summary ---
Author Organization [facility] Address [address] [place], [place] [address] [address] Care Team Providers Care Paper Wrapping Machine Operator Name Role Phone Other, Physician Fabrice CRUZ [...] file Plan of Treatment Not on file Insurance [address] [id number] [facility] MEDICARE REPLACEMENT [facility] MEDICARE REPLACEMENT Care Teams Paper Wrapping Machine Operator Relationship Specialty Start Date End Date Other, Physician Fabrice MD PCP - General Internal Medicine 04/20/12
--- OUTSIDE RECORDS SUMMARY | 2024-09-08 09:48 | XMS_ITS | Clinical Summary ---
Author Organization [employer] Address [address] [place] [address] Care Team Providers Care Microbial Specialist Name Role Phone Unavailable Primary Care Provider [...]
--- OUTSIDE RECORDS SUMMARY | 2024-09-08 09:48 | XMS_ITS | Encounter Summary ---
Author Organization [employer] Address [address] [place] [address] Care Team Providers Care Customer Advisor Specialist Name Role Phone Unavailable Primary Care Provider Unavailabl e Encounter Details Date Type Department Care Team (Late st Contact Info) Description 05/11/2020 Transcribed Document [facility] Family Medicine [facility] [place] [address] ProviderRoberta MD [address], [place] [address] Social History Tobacco Use Types Packs/Day Years Used Date Smoking Tobacco: Never Assessed Sex and Gender Information Value Date Recorded Sex Assigned at Not on file Legal Sex Male 4:21 PM CDT Gender Identity Not on file Sexual Orientation Not on file documented as of this encounter Miscellaneous Notes * Cerner Conversion Note - Roberta ProviderMD - 05/11/2020 1:12 PM NATURAL GAS PLANT TECHNICIAN Patient: MANJEET TREVINO Age: 60 Years Sex: Male : 1960 FOLLOW-UP Date of Service: 04/19/2020 CHIEF COMPLAINT: Low back pain. HISTORY OF PRESENT ILLNESS: This is a 60 y/o male being seen in follow-up with a 19 year history of low back pain as well as pain in his bilateral knees that he overall describes as constant, aching, burning, tingling and sharp. The pain is exacerbated with bending, walking and standing. It is reduced with rest and medication. He currently rates the pain as a 4/10 VAS and reports a 100% reduction with medication. The medication list reviewed. Pertinent medications are noted to be Percocet 10 mg one p.o. 5x daily. He also has an intrathecal pain pump with Morphine Sulfate at a concentration of 10 mg per ml programmed at a simple continuous infusion of 0.02 mg per hour for a total of 0.5 mg per day. Nursing intake reviewed. Fall info sheet provided. HISTORY: Allergies: None. Social History: Marital status: . Current work status: Not stated. Illicit drug use: Denies. Alcohol use: Denies. Current tobacco use: Enjoys nicotine tobacco in the form of cigarettes. Caffeine use: Not stated. Past Medical History: Arthritis. Chicken pox. Heartburn. Hypertension. Pneumonia. Past Surgical History: Hernia. Tonsils and adenoids. Past Family History: Reviewed. REVIEW OF SYSTEMS: General: Negative. Respiratory: Negative. Neurological: Negative. Gastrointestinal: Acid reflux. Last bowel movement 04/19/20, soft. Musculoskeletal: Joint pain, neck pain, back pain, mostly contained. Cardiovascular: Negative. Psychiatric: Anxiety. HEENT: Negative. Endocrine: Negative. Hematology: Negative. Skin: Negative. Genitourinary: Negative. VITAL SIGNS: Vital signs are reviewed. BP 150/89, heart rate 79, respiratory rate 20, O2 SATs 99% on room air, height 5???8?? , weight 194 lbs PHYSICAL EXAMINATION: Constitutional: Conversant, no acute distress, well-nourished. Integumentary: Deferred. HEENT: Normocephalic, atraumatic and anicteric. Neck: Deferred. Chest and Lung: Deferred. Cardiovascular: Deferred. Abdomen: Deferred. Peripheral Vascular: Deferred Neurologic: Deferred. Musculoskeletal: Able to transition independently from walking, sitting, standing without overt difficulty. Antalgic gait. Psychiatric: Alert and oriented x 3. Denies suicidal ideation. Normal mood and affect. No signs of impairment. DIAGNOSTIC STUDIES: Not present MEDICAL DECISION MAKING: Stable. ASSESSMENT: 1. Chronic pain syndrome secondary to multi-site osteoarthritis primarily the bilateral knees. 2. Lumbar degenerative disc disease. 3. Lumbar facet arthropathy. PROCEDURE/TEST ORDERED: Not present. CURRENT PLAN: We will continue current medications. His pump was refilled last by [facility] on March 28. He usually has refill every 3 months. Tox screen from February 20 is positive for oxycodone and Morphine which was appropriate. Question answered to his satisfaction and verbalized understanding. JACOB reviewed. SHIELA Waller/renee Electronically signed by Iris [facility] Conversion Web Site Designer Cerner at 07/17/2022 3:32 PM CDT documented in this encounter Plan of Treatment Not on file documented as of this encounter Visit Diagnoses Not on filedocumented in this encounter
--- OUTSIDE RECORDS SUMMARY | 2024-09-08 09:48 | XMS_ITS | Encounter Summary ---
Author Organization [employer] Address [address] [place] [address] Care Team Providers Care Irrigator Valve Pipe Name Role Phone Unavailable Primary Care Provider Unavailabl e Encounter Details Date Type Department Care Team (Late st Contact Info) Description 01/27/2019 Transcribed Document [facility] [place] Family Medicine [facility] [place] [address] ProviderRoberta MD [address] [place], [place] [id number] Social History Tobacco Use Types Packs/Day Years Used Date Smoking Tobacco: Never Assessed Sex and Gender Information Value Date Recorded Sex Assigned at Not on file Legal Sex Male 4:21 PM CDT Gender Identity Not on file Sexual Orientation Not on file documented as of this encounter Miscellaneous Notes * Cerner Conversion Note - Roberta Elizabeth MD - 01/27/2019 3:31 PM CDT Patient: MANJEET TREVINO Age: 58 Years Sex: Male : 1960 PAIN PUMP REFILL PROCEDURE DATE OF SERVICE: 12/09/2018 CHIEF COMPLAINT: Low back pain. HISTORY OF PRESENT ILLNESS: The patient is a 58-year-old male who returns to the clinic today to undergo an intrathecal pain pump refill procedure to assist with pain control related to lumbar degenerative disc disease and lumbar spondylosis. His pain is a 2/10 on the numerical pain scale rating. He reports increased pain with increased activity around his home. He describes getting 95% pain relief at this time with the use of Percocet 10/325 mg five times daily dosing along with his intrathecal pain pump which is currently delivering intrathecal Morphine Sulfate at a concentration of 20.0 mg/mL, being delivered on a simple continuous infusion mode providing a total of 5.592 mg/day. Nursing intake was reviewed and on today's visit this individual has a BP 149/84, heart rate 72, respiratory rate 18, O2 SATs 97% on room air, height 5'8 , weight 194 lb. HISTORY: Allergies: He reports none. OBJECTIVE: Constitutional: The patient is conversant and well-nourished. Vital signs reviewed today. Psychiatric: The patient is alert and oriented to self, time and place today. The patient has a normal mood and affect at today's visit and there is no evidence of depression on the depression questionnaire that was completed today. Physical examination was deferred. ASSESSMENT: Stable. 1. Chronic pain syndrome. 2. Lumbar degenerative disc disease. 3. Lumbar spondylosis. 4. Lumbar facet arthropathy. 5. Nicotine use. CURRENT PLAN: The patient's intrathecal pain pump was refilled today by my nursing staff per manufacture's protocol without complications. The patient's concentration of Morphine Sulfate will remain at 20.0 mg/mL, being delivered on a simple continuous infusion mode providing a total of 5.592 mg/day. It is noted that during the interrogation of the patient's intrathecal pain pump end of life issues are now starting to appear. He has a total of five months remaining on the intrathecal pain pump battery life. We are going to refer him to Dr. Jack Spencer for an intrathecal pain pump change-our secondary to battery being at end of life issues. The patient has an understanding and agrees with the above plan. We will see the patient back in the clinic in three months for his next pump refill procedure date. BRIAN Valenzuela/nickolas documented in this encounter Plan of Treatment Not on file documented as of this encounter Visit Diagnoses Not on filedocumented in this encounter
--- OUTSIDE RECORDS SUMMARY | 2024-09-08 09:48 | XMS_ITS | Encounter Summary ---
Author Organization [employer] Address [address] [place] [address] Care Team Providers Care Ems Helicopter Pilot Name Role Phone Unavailable Primary Care Provider Unavailabl e Encounter Details Date Type Department Care Team (Late st Contact Info) Description 03/28/2019 Transcribed Document [facility] [place] Family Medicine [address] [place] [address] ProviderRoberta MD [address] [place] [address] Social History Tobacco Use Types Packs/Day Years Used Date Smoking Tobacco: Never Assessed Sex and Gender Information Value Date Recorded Sex Assigned at Not on file Legal Sex Male 4:21 PM CDT Gender Identity Not on file Sexual Orientation Not on file documented as of this encounter Miscellaneous Notes * Cerner Conversion Note - Roberta ProviderMD - 03/28/2019 8:00 AM RADAR TECHNICIAN [facility] Main OR Preop Summary Primary Physician: DOMENICO MEZA MD[facility] Finalized Date/Time: 03/28/19 08:33:52 Pt. Name: MANJEET SIDDIQUI D.O.B./Sex: 1960 Male Med Rec #: [id number] Physician: DOMENICO MEZA MD[facility] Financial #: [id number] Pt. Type: O Room/Bed: /4 Admit/Disch: 03/28/19 06:42:00 - Institution: [facility] PreOp Case Times Entry 1 In Preop 03/28/19 06:01:00 Ready for Holding n/a Room Patient Ready for 03/28/19 07:05:00 Surgery Patient Out of Preop 03/28/19 08:18:00 Patient Out of n/a Holding Room Last Modified By: Staci Orlando, RN 03/28/19 08:33:51 [facility] PreOp Case Times Audit 03/28/19 08:33:51 Ice Cream Scooper: MELLOCHERRYCECILIA Modifier: RAMEZALR <+> 1 Patient Out of Preop 03/28/19 07:05:05 Ice Cream Scooper: MISTYHATFBUNNY Modifier: MISTYHATFIELD <+> 1 Patient Ready for Surgery Finalized By: Staci Orlando RN Document Signatures Signed By: Staic Orlando RN 03/28/19 08:33 documented in this encounter Plan of Treatment Not on file documented as of this encounter Visit Diagnoses Not on filedocumented in this encounter
--- OUTSIDE RECORDS SUMMARY | 2024-09-08 09:48 | XMS_ITS | Encounter Summary ---
Author Organization [employer] Address [address] [place] [address] Care Team Providers Care Workers Compensation Consultant Name Role Phone Unavailable Primary Care Provider Unavailabl e Encounter Details Date Type Department Care Team (Late st Contact Info) Description 03/29/2019 Transcribed Document [facility] [place] Family Medicine [address] [place] [address] ProviderRoberta MD [address] [place], [place] [id number] Social History Tobacco Use Types Packs/Day Years Used Date Smoking Tobacco: Never Assessed Sex and Gender Information Value Date Recorded Sex Assigned at Not on file Legal Sex Male 4:21 PM CDT Gender Identity Not on file Sexual Orientation Not on file documented as of this encounter Miscellaneous Notes * Cerner Conversion Note - Roberta ProviderMD - 03/29/2019 6:00 AM ACCESS TECH Pain Assessment Entered On: 03/29/2019 6:51 EST Performed On: 03/29/2019 6:24 EST by Lori Rees LPN Intervention Information: acetaminophen-oxyCODONE Performed by Lori Rees LPN on 03/29/2019 05:24:00 EST acetaminophen-oxyCODONE,1Tab Oral Pain Assessment Pain Assessment : Follow-up assessment Pain Scale Goal : 3 Pain Scale Used : 0-10 Scale Location : Abdominal Onset : Acute Quality : Aching Pain Radiation : No Pain Improved by : Medication, Repositioning Pain Worsened by : Movement Pain Intervention, Drug : Medicated Pain Intervention, Non-Drug : Positioning Pain Improved by Intervention : Yes Lori Rees LPN - 03/29/2019 6:50 EST Pain Scale Intensity : 4 Lori Rees LPN - 03/29/2019 6:50 EST Image 4 - Images currently included in the form version of this document have not been included in the text rendition version of the form. documented in this encounter Plan of Treatment Not on file documented as of this encounter Visit Diagnoses Not on filedocumented in this encounter
[2024-09-08 10:28] LABS: Reticulocyte % (Auto) 2.1 % (0.9-3.2)
[2024-09-08 10:38] LABS: Lactate Dehydrogenase 196 U/L (313-618)
[2024-09-08 11:28] LABS: Iron 80 ug/dL (49-181); Vitamin B12 468 pg/mL (239-931)
[2024-09-08 11:38] LABS: Total Iron Binding Capacity 425 ug/dL (261-462)
[2024-09-08 12:03] LABS: Ferritin 10.6 ng/ml (17.9-464)
[2024-09-09 08:32] LABS: Haptoglobin 187 mg/dL (32-363)
== END 2024-09-08 23:59 | disposition home or self-care (01) ==
LOC: LAB 09:39
PROVIDERS: PCP Nurse Practitioner Family; Visit Provider Internal Medicine Medical Oncology
DX: D64.9 Anemia, unspecified (principal)
CPT/HCPCS: 36415; 82607; 82728; 82746; 83010; 83540; 83550; 83615; 85044; 86880

== ENCOUNTER 2024-09-22 14:08 | Outpatient (CLI) | payer MEDICARE, SELFPAY ==
--- NOTE | 2024-09-22 14:10 | XR_ITS ---
FINAL REPORT CLINICAL HISTORY: right hip pain COMPARISON: None FINDINGS: RIGHT HIP Two views of the right hip demonstrate no acute fracture or dislocation. There are moderate degenerative changes. There is normal mineralization. The visualized bony structures are well aligned. No soft tissue abnormality is seen. IMPRESSION: Moderate degenerative changes without acute bony abnormality. Reviewed, Interpreted and Dictated by Dioni Amor MD Transcribed by Jordyn Pabon Authenticated and [facility]
--- NOTE | 2024-09-22 14:10 | XR_ITS ---
FINAL REPORT CLINICAL HISTORY: left hip pain COMPARISON: None FINDINGS: LEFT HIP: Two views of the left hip with an AP view of the pelvis demonstrate no acute fracture or dislocation. There are moderate degenerative changes. Normal mineralization of the bones is noted. The visualized bony structures are well aligned. No soft tissue abnormality is seen. IMPRESSION: Moderate degenerative changes without acute bony abnormality. Reviewed, Interpreted and Dictated by Dioni Amor MD Transcribed by Jordyn Pabon Authenticated and [facility]
--- OUTSIDE RECORDS SUMMARY | 2024-09-22 14:12 | XMS_ITS | Referral Summary ---
Author Organization [employer] Address [address] [place] [address] Care Team Providers Care Vice President Of Software Engineering Name Role Phone Unavailable Primary Care Provider [...]
--- OUTSIDE RECORDS SUMMARY | 2024-09-22 14:12 | XMS_ITS | Encounter Summary ---
Author Organization [employer] Address [address] [place] [address] Care Team Providers Care Hr Assistant Name Role Phone Unavailable Primary Care Provider Unavailabl e Encounter Details Date Type Department Care Team (Late st Contact Info) Description 11/05/2019 Transcribed Document [facility] [place] [address] ProviderRoberta MD [address] [place], [place] [id number] Social History Tobacco Use Types Packs/Day Years [...]
--- OUTSIDE RECORDS SUMMARY | 2024-09-22 14:12 | XMS_ITS | Referral Summary ---
Author Organization [facility] Address [address] [place], [place] [address] [address] Care Team Providers Care Aircraft Motor Mechanic Name Role Phone Other, Physician Fabrice CRUZ [...] Plan of Treatment Not on file Insurance [facility] MEDICARE REPLACEMENT Care Teams Aircraft Motor Mechanic Relationship Specialty Start Date End Date Other, Physician Fabrice MD PCP - General Internal Medicine 04/20/12
--- OUTSIDE RECORDS SUMMARY | 2024-09-22 14:12 | XMS_ITS | Encounter Summary ---
Author Organization [employer] Address [address] [place] [address] Care Team Providers Care Predatory Animal Hunter Name Role Phone Unavailable Primary Care Provider Unavailabl e Encounter Details Date Type Department Care Team (Late st Contact Info) Description 03/28/2019 Transcribed Document [facility] [place] Family Medicine [address] [place] [address] ProviderRoberta MD [address] [place] [address] Social History Tobacco Use Types Packs/Day Years Used Date Smoking Tobacco: Never Assessed Sex and Gender Information Value Date Recorded Sex Assigned at Not on file Legal Sex Male 4:21 PM CDT Gender Identity Not on file Sexual Orientation Not on file documented as of this encounter Miscellaneous Notes * Cerner Conversion Note - Roberta ProviderMD - 03/28/2019 9:42 AM GLASS DESIGNER Evaluation, Occupational Therapy Entered On: 03/28/2019 15:07 [...] Evaluation and Treatme Ordered By: DOMENICO MEZA [facility] Active Diagnoses : No Qualifying Diagnoses Admission [...] independent with transfer in room. Educated on front end web designer and LHS and shoe horn. Transfered a [...] 1 UNA JACOBSENYI/L - 03/28/2019 15:07 EST Electronically signed by Iris [facility] Conversion Fiberglass Fabricator Cerner at 07/17/2022 3:30 PM CDT documented in this encounter Plan of Treatment Not on file documented as of this encounter Visit Diagnoses Not on filedocumented in this encounter
--- OUTSIDE RECORDS SUMMARY | 2024-09-22 14:12 | XMS_ITS | Encounter Summary ---
Author Organization [employer] Address [address] [place] [address] Care Team Providers Care Drying Frame Operator Name Role Phone Unavailable Primary Care Provider Unavailabl e Encounter Details Date Type Department Care Team (Late st Contact Info) Description 01/27/2019 Transcribed Document [facility] [place] Family Medicine [facility] [place] [address] ProviderRoberta MD [address] [place], [place] [id number] Social History Tobacco Use Types Packs/Day Years [...]
--- OUTSIDE RECORDS SUMMARY | 2024-09-22 14:12 | XMS_ITS | Encounter Summary ---
Author Organization [employer] Address [address] [place] [address] Care Team Providers Care Cyber Intelligence Analyst Name Role Phone Unavailable Primary Care Provider Unavailabl e Encounter Details Date Type Department Care Team (Late st Contact Info) Description 03/29/2019 Transcribed Document [facility] [place] [address] [place] [address] ProviderRoberta MD [address] [place], [place] [id number] Social History Tobacco Use Types Packs/Day Years Used Date Smoking Tobacco: Never Assessed Sex and Gender Information Value Date Recorded Sex Assigned at Not on file Legal Sex Male 4:21 PM CDT Gender Identity Not on file Sexual Orientation Not on file documented as of this encounter Miscellaneous Notes * Cerner Conversion Note - Roberta ProviderMD - 03/29/2019 6:00 AM PALLIATIVE SENIOR NP Pain Assessment Entered On: 03/29/2019 6:51 EST [...]
--- OUTSIDE RECORDS SUMMARY | 2024-09-22 14:12 | XMS_ITS | Encounter Summary ---
Author Organization [employer] Address [address] [place] [address] Care Team Providers Care Activities Manager Name Role Phone Unavailable Primary Care Provider Unavailabl e Encounter Details Date Type Department Care Team (Late st Contact Info) Description 03/28/2019 Transcribed Document [facility] [place] Family Medicine [address] [place] [address] ProviderRoberta MD [address] [place] [address] Social History Tobacco Use Types Packs/Day Years Used Date Smoking Tobacco: Never Assessed Sex and Gender Information Value Date Recorded Sex Assigned at Not on file Legal Sex Male 4:21 PM CDT Gender Identity Not on file Sexual Orientation Not on file documented as of this encounter Miscellaneous Notes * Cerner Conversion Note - Roberta ProviderMD - 03/28/2019 8:00 AM CASER SHOE PARTS [facility] Main OR Preop Summary Primary Physician: DOMENICO MEZA MD-[facility] Finalized Date/Time: 03/28/19 08:33:52 Pt. Name: MANJEET SIDDIQUI D.O.B./Sex: 1960 Male Med Rec #: [id number] Physician: DOMENICO MEZA MD-[facility] Financial #: [id number] Pt. Type: O Room/Bed: /4 Admit/Disch: 03/28/19 06:42:00 - Institution: [facility] PreOp Case Times Entry 1 In Preop 03/28/19 06:01:00 Ready for Holding n/a Room Patient Ready for 03/28/19 07:05:00 Surgery Patient Out of Preop 03/28/19 08:18:00 Patient Out of n/a Holding Room Last Modified By: Staci Orlando, RN 03/28/19 08:33:51 [facility] PreOp Case Times Audit 03/28/19 08:33:51 Professor Of Vegetable Science: MELLOCHERRYCECILIA Modifier: RAMEZALR <+> 1 Patient Out of Preop 03/28/19 07:05:05 Professor Of Vegetable Science: MISTYHATFBUNNY Modifier: MISTYHATFIELD <+> 1 Patient Ready for Surgery Finalized By: Staci Orlando RN Document Signatures Signed By: Staci Orlando RN 03/28/19 08:33 documented in this encounter Plan of Treatment Not on file documented as of this encounter Visit Diagnoses Not on filedocumented in this encounter
--- OUTSIDE RECORDS SUMMARY | 2024-09-22 14:12 | XMS_ITS | Clinical Summary ---
Author Organization [facility] Address [address] [place], [place] [address] [address] Care Team Providers Care Personnel Research Psychologist Name Role Phone Other, Physician Fabrice CRUZ [...] to complete this topic Insurance Care Teams Personnel Research Psychologist Relationship Specialty Start Date End Date Other, Physician OutMD kristie PCP - General Internal Medicine 04/20/12
--- OUTSIDE RECORDS SUMMARY | 2024-09-22 14:12 | XMS_ITS | Clinical Summary ---
Author Organization [employer] Address [address] [place] [address] Care Team Providers Care Engine Test Cell Technician Name Role Phone Unavailable Primary Care Provider [...]
--- OUTSIDE RECORDS SUMMARY | 2024-09-22 14:12 | XMS_ITS | Encounter Summary ---
Author Organization [employer] Address [address] [place] [address] Care Team Providers Care Seamark Advanced Operator Maintainer Name Role Phone Unavailable Primary Care Provider Unavailabl e Encounter Details Date Type Department Care Team (Late st Contact Info) Description 03/29/2019 Transcribed Document [facility] [place] Family Medicine [address] [place] [address] ProviderRoberta MD [address] [place], [place] [id number] Social History Tobacco Use Types Packs/Day Years Used Date Smoking Tobacco: Never Assessed Sex and Gender Information Value Date Recorded Sex Assigned at Not on file Legal Sex Male 4:21 PM CDT Gender Identity Not on file Sexual Orientation Not on file documented as of this encounter Miscellaneous Notes * Cerner Conversion Note - Historical ProviderMD - 03/29/2019 10:44 AM SPECTRAL SCIENTIST [facility] Authorization Entered On: 03/29/2019 10:46 EST Performed On: 03/29/2019 10:44 EST by Nuria Molina Rn-Utilization Review Primary Insurance Authorization Authorization and Policy Numbers : Insurance 1 Health Plan: [facility] MEDICARE REPL Policy Number: [id number] Authorization Number: [id number] Insurance Primary Name : [employer] MEDICARE REPL Policy Number: [id number] Authorization Status-Primary : Opo status approv Authorized Service Begin Date-Primary : 03/28/2019 EST Observation Authorization Nbr-Primary : [id number] Authorization Comments-Primary : op auth per star notes Historical Authorization Comments-Primary : No Authorization Comments Found Nuria Molina Rn-Utilization Review - 03/29/2019 10:44 EST Electronically signed by rIis [facility] Conversion Machine Container Washer Cerner at 07/17/2022 3:27 PM CDT documented in this encounter Plan of Treatment Not on file documented as of this encounter Visit Diagnoses Not on filedocumented in this encounter
--- OUTSIDE RECORDS SUMMARY | 2024-09-22 14:12 | XMS_ITS | Clinical Summary ---
Author Organization [facility] [place] [address] Care Team Providers Care Lead Burner Name Role Phone Unavailable Primary Care Provider [...] 2012 UKY-Zoster Vaccines (1 of 2) 2012 [id number] Vaccine ( season) 2023 01/24/2022, 10/22/2021, 03/13/2021, [...]
--- OUTSIDE RECORDS SUMMARY | 2024-09-22 14:12 | XMS_ITS ---
Laboratory report Created on: September 13, 2024 PENG TREVINO : 1960 Sex: Male Author Organization Unknown PROBLEMS Problems List Code Description RESULTS Laboratory Orders Date Order Code Test 2024-09-08 [id number] HAPTOGLOBIN Laboratory Results Date LOINC Test Value Unit Reference Range Interpre tation 2024-09-08 [id number] HAPTOGLOBIN 187 MG/DL 32-363
--- OUTSIDE RECORDS SUMMARY | 2024-09-22 14:12 | XMS_ITS | Encounter Summary ---
Author Organization [employer] Address [address] [place] [address] Care Team Providers Care Pediatric Immunologist Name Role Phone Unavailable Primary Care Provider Unavailabl e Encounter Details Date Type Department Care Team (Late st Contact Info) Description 05/11/2020 Transcribed Document [facility] [place] Family Medicine [facility] [place] [address] ProviderRoberta MD [address] [place], [place] [address] Social History Tobacco Use Types Packs/Day Years Used Date Smoking Tobacco: Never Assessed Sex and Gender Information Value Date Recorded Sex Assigned at Not on file Legal Sex Male 4:21 PM CDT Gender Identity Not on file Sexual Orientation Not on file documented as of this encounter Miscellaneous Notes * Cerner Conversion Note - Roberta ProviderMD - 05/11/2020 1:12 PM SKIN WASHER Patient: MANJEET TREVINO Age: 60 Years Sex: [...] reviewed. SHIELA Waller/renee Electronically signed by Iris [facility] Conversion Auto Repair Shop Manager Cerner at 07/17/2022 3:32 PM CDT documented in this encounter Plan of Treatment Not on file documented as of this encounter Visit Diagnoses Not on filedocumented in this encounter
== END 2024-09-22 23:59 | disposition home or self-care (01) ==
LOC: RAD 14:09
PROVIDERS: PCP Nurse Practitioner Family; Visit Provider Orthopaedic Surgery
DX: M16.0 Bilateral primary osteoarthritis of hip (principal)
CPT/HCPCS: 73502

== ENCOUNTER 2024-11-09 06:35 | Day surgery (SDC) | payer MEDICARE, SELFPAY ==
[2024-11-08 09:05] VITALS: BMI 29.9
--- NOTE | 2024-11-08 13:02 | P.HP_ITS ---
History of Present Illness *Admission Date: 11/09/24 *Reason for visit:: Personal history of adenomatous colon polyps *History of present illness: Mr. Siddiqui is a 64-year-old gentleman who is here for screening/surveillance colonoscopy. He did have a positive Cologuard in January 2022 and had a subsequent colonoscopy in March 2022 (David Redd M.D.) and had multiple adenomatous colon polyps (tubular adenomas x 4) which were removed. The examination is deemed medically necessary for surveillance/screening colonoscopy. The patient has been seen, interviewed and examined prior to the procedure by both myself and the anesthesia provider. [facility] Disclaimer: The information contained in this section may have been updated after the patient was seen, as this information can be updated by other users. Medical History Iron deficiency anemia Anemia Abnormal cardiovascular stress test SOBOE (shortness of breath on exertion) Diaphoresis Constrictive pericarditis Constrictive pericarditis Abnormal echocardiogram Abnormal result of cardiovascular function study Typical angina Anxiety COPD (chronic obstructive pulmonary disease) CAD (coronary artery disease) Dizziness HTN (hypertension) Crescendo angina Chest pain Dyspnea Palpitations Erectile disorder, generalized, mild Chronic pain syndrome Hypertensive disorder Surgical History History of esophagogastroduodenoscopy (EGD) History of colonoscopy History of tonsillectomy History of hernia repair History of coronary artery stent placement Family History Other Family history of cancer Social History (Updated 11/09/24 @ 07:09 by Serena Ricardo RN) Smoking Status: Current every day smoker tobacco type: cigarettes packs per day: 1 second hand exposure: No alcohol intake: never substance use type: denies use current occupational status: unemployed and disabled Travel in the last 8 weeks?: None household members: none housing: house current occupational exposures/hazards: No caffeine: Yes Have you lived/traveled outside US in past 30 days?: No Contact w/someone who lives/traveled outside US past 30 days?: No Exposure to someone with infectious disease in past 14 days?: No Do you have a fever (greater than 100.4 F or 38 C)?: No Have you tested positive for COVID-19?: No Exposed to someone with COVID-19 in past 14 days?: No Do you have a sore throat?: No Do you have a cough?: No Do you have any weakness?: No Are you experiencing any nausea/vomitting?: No Do you have any diarrhea?: No Are you experiencing any unusual bleeding?: No Do you have any muscle aches/pain?: No Do you have any abdominal pain?: No Are you experiencing loss of taste or smell?: No Other Medical History Have you received the Flu Vaccine for this season: Yes Have you received the Pneumonia Vaccine: Yes Review of Systems Review of Systems Review of systems (narrative): Negative *Cardiovascular Comments: Negative *Gastrointestinal Comments: Negative *Genitourinary Comments: Negative *Musculoskeletal Comments: Negative *Neurologic Comments: Negative Meds Home Medications and Allergies Home Medications ?Medication ?Instructions ?Recorded ?Confirmed ?Type albuterol sulfate 90 mcg/actuation See Rx Instructions .Route 04/24/23 11/09/24 Rx aerosol inhaler .COMPLEX Breathing problems #8.5 grams loratadine 10 mg tablet 10 mg PO DAILY PRN allergies #90 04/24/23 11/09/24 Rx tabs potassium chloride 20 mEq 20 meq PO DAILY 07/29/23 History tablet,extended release(part/cryst) bupropion HCl (smoking deter) 150 150 mg PO BID #180 t abs 11/26/23 11/09/24 Rx mg tablet,12 hr sustained-release(smoking deterrent) cyclobenzaprine 10 mg tablet 10 mg PO TID PRN muscle s pasm #60 01/20/24 11/09/24 Rx tabs aspirin 81 mg tablet,delayed 81 mg PO QDAY antiplatele t #90 tabs 02/22/24 11/09/24 Rx release metoprolol succinate 25 mg 12.5 mg (1/2 x 25 mg) PO DA LORENZA 02/22/24 11/09/24 Rx tablet,extended release 24 hr beta damaris #90 tabs rosuvastatin 20 mg tablet 20 mg PO DAILY Cholesterol # 90 tabs 02/22/24 11/09/24 Rx fluticasone propionate 50 2 spray inhalation BID aller gies 05/25/24 11/09/24 Rx mcg/actuation nasal #16 grams spray,suspension oxycodone-acetaminophen 10 mg-325 1 tab PO Q4H 05/25/2 5 11/09/24 History mg tablet (Percocet) pantoprazole 40 mg tablet,delayed 40 mg PO DAILY gerd 90 days #90 05/25/24 11/09/24 Rx release tabs trazodone 100 mg tablet 100 mg PO QHS night #90 tabs 05/25/24 11/09/24 Rx albuterol sulfate 2.5 mg/3 mL 2.5 mg (3 mL) inhalation Q6H Copd 06/06/24 11/09/24 Rx (0.083 %) solution for nebulization #75 mL isosorbide mononitrate 30 mg 30 mg PO DAILY #30 tabs 0 08/18/24 11/09/24 Rx tablet,extended release 24 hr cetirizine 10 mg tablet (Zyrtec) 10 mg PO DAILY PRN al lergy 08/23/24 11/09/24 Rx symptoms #90 tabs montelukast 10 mg tablet 10 mg PO DAILY allergies 90 days 08/23/24 11/09/24 Rx #90 tabs ascorbic acid (vitamin C) 100 mg 100 mg PO DAILY take with iron 09/13/24 11/09/24 Rx tablet tablet #90 tabs ferrous sulfate 325 mg (65 mg 325 mg PO DAILY iron def iency 09/13/24 11/09/24 Rx iron) tablet (Iron (ferrous anemia #90 tabs sulfate)) fluticasone furoate 100 See Rx Instructions .Route 0 09/23/24 11/09/24 Rx mcg-vilanterol 25 mcg/dose .COMPLEX #60 ea inhalation powder (Breo Ellipta) spironolactone 25 mg tablet 25 mg PO DAILY #90 tabs 11/09/24 Rx (Aldactone) sodium,potassium,mag sulfates 17.5 See Rx Instructions PO .COMPLEX 10/26/24 11/09/24 Rx gram-3.13 gram-1.6 gram oral soln #354 mL (Suprep Bowel Prep Kit) peg 3350-electrolytes 236 240 ml PO Q10M colonscopy #4 ,000 mL 10/28/24 11/09/24 Rx gram-22.74 gram-6.74 gram-5.86 gram solution (Golytely) furosemide 40 mg tablet (Lasix) 40 mg PO DAILY PRN José Miguel ma 11/08/24 11/09/24 History ibuprofen 800 mg tablet See Rx Instructions .Route 0 11/08/24 11/09/24 History .COMPLEX PRN Mild Pain (Scale Score 1-4) sildenafil 100 mg tablet (Viagra) See Rx Instructions .Route .COMPLEX 11/08/24 11/09/24 History sodium sul 1.479 gram-potas ch See Rx Instructions PO PER PKG DIR 11/08/24 11/09/24 Rx 0.188 gram-magnes sul 0.225 gram colonscopy #24 tabs tablet (Sutab) New Prescriptions to Start Prescriptions: Allergies Allergy/AdvReac Type Severity Reaction Status Date / Time No Known Allergies Allergy Verified 11/08/24 08:55 Exam Data for Last 24 hours I & O for Last 24 hours: Intake & Output 11/05/24 11/06/24 11/07/24 11/08/24 23:59 23:59 23:59 23:59 Weight 197 lb *Routine HEENT Exam Head: Present normocephalic Eye: Present EOMI and PERRL ENT: Present mucous membranes moist *Routine Neck Exam Neck: Present supple *Routine Respiratory Exam Respiratory: Present CTA bilaterally *Routine Cardiovascular Exam Cardiovascular: Present RRR *Routine Abdominal Exam Abdominal: Present soft and normoactive bowel sounds; Absent tenderness *Routine Rectal Exam Rectal:: deferred *Routine Genitalia Exam Genitalia:: deferred *Routine Extremities Exam Extremities: Absent cyanosis, clubbing or edema *Routine Skin Exam Skin: Present warm; Absent rash *Routine Neurological Exam Neurological: Present alert and oriented X3 Assessment and Plan *Assessment and plan (1) Personal history of adenomatous and serrated colon polyps: Status: Acute Category: Medical Code(s): Z86.0101 - Personal history of adenomatous and serrated colon polyps (2) Colon cancer screening: Status: Acute Category: Medical Code(s): Z12.11 - Encounter for screening for malignant neoplasm of colon (3) Anemia: Status: Acute Qualifiers: Anemia type: unspecified type Qualified Code(s): D64.9 - Anemia, unspecified Category: Medical Code(s): D64.9 - Anemia, unspecified Plan A/P: 1. Personal history of adenomatous colon polyps is the preprocedural diagnosis. The patient also has borderline anemia. The patient will be anesthetized/sedated using MAC sedation. The patient has been seen and examined. Cardiac and lung assessment prior to the examination is stable. Proceed with planned screening/surveillance colonoscopy.
[2024-11-09 07:08] VITALS: BP 155/89; PULSE 86; RESP 18; TEMP 36.2; O2SAT 95; BMI 66.0
[2024-11-09] MEDS: LACTATED RINGERS 1000ML 1,000 ML 25 ML IV (07:20)
[2024-11-09 07:29] LABS: Hematocrit 45.5 % (42.0-52.0); Hemoglobin 15.4 g/dL (14.1-18.0); Mean Corpuscular HGB Conc 33.8 g/dL (31.8-35.4); Mean Corpuscular Hemoglobin 30.2 pg (27.0-31.2); Mean Corpuscular Volume 89.2 fl (80-94); Platelet Count 296 K/mm3 (142-424); Red Blood Count 5.10 M/mm3 (4.60-6.20); White Blood Count 10.5 K/mm3 (4.8-10.8)
--- NOTE | 2024-11-09 07:32 | P.PNANES_ITS ---
[facility] Disclaimer: The information contained in this section may have been updated after the patient was seen, as this information can be updated by other users. Medical History Iron deficiency anemia Anemia Abnormal cardiovascular stress test SOBOE (shortness of breath on exertion) Diaphoresis Constrictive pericarditis Constrictive pericarditis Abnormal echocardiogram Abnormal result of cardiovascular function study Typical angina Anxiety COPD (chronic obstructive pulmonary disease) CAD (coronary artery disease) Dizziness HTN (hypertension) Crescendo angina Chest pain Dyspnea Palpitations Erectile disorder, generalized, mild Chronic pain syndrome Hypertensive disorder Surgical History History of esophagogastroduodenoscopy (EGD) History of colonoscopy History of tonsillectomy History of hernia repair History of coronary artery stent placement Family History Other Family history of cancer Social History (Updated 11/09/24 @ 07:09 by Serena Ricardo RN) Smoking Status: Current every day smoker tobacco type: cigarettes packs per day: 1 second hand exposure: No alcohol intake: never substance use type: denies use current occupational status: unemployed and disabled Travel in the last 8 weeks?: None household members: none housing: house current occupational exposures/hazards: No caffeine: Yes Have you lived/traveled outside US in past 30 days?: No Contact w/someone who lives/traveled outside US past 30 days?: No Exposure to someone with infectious disease in past 14 days?: No Do you have a fever (greater than 100.4 F or 38 C)?: No Have you tested positive for COVID-19?: No Exposed to someone with COVID-19 in past 14 days?: No Do you have a sore throat?: No Do you have a cough?: No Do you have any weakness?: No Are you experiencing any nausea/vomitting?: No Do you have any diarrhea?: No Are you experiencing any unusual bleeding?: No Do you have any muscle aches/pain?: No Do you have any abdominal pain?: No Are you experiencing loss of taste or smell?: No [facility] Anesthesia Checklist Patient Identification Patient Identification: Arm Band Structural Data Admitted From: Home Planned Operative Procedure/s: Colonoscopy Consent for Planned Operative Procedure(s) Verified: Yes Verified Documents: Surgical Consent and History and Physical NPO Status Verified Time NPO: 04:00 (finished prep) Additional verifications Anesthesia Reactions: No Airway Assessment Mallampati Score:: Class II C-Spine Mobility Assessed: Yes TMJ Mobility Assessed: Yes Dentition: Good Dentition (upper partial) Neurological Assessment Level of Consciousness: Awake, Alert and Appropriate Anesthesia Plan Anesthesia Risk discussed: Yes Anesthesia Plan: Verified ASA Class: III Anesthesia Type: MAC
[2024-11-09 07:43] LABS: Iron 138 ug/dL (49-181)
[2024-11-09 07:52] LABS: Total Iron Binding Capacity 431 ug/dL (261-462)
--- NOTE | 2024-11-09 08:00 | HMH.PROCNOTE ---
[facility] Procedure Note Date: 11/09/24 Time: 08:15 Procedure Note:: Colonoscopy Procedure Report: Colonoscopy with cold snare polypectomy Endoscopist: Ronaldo Irwin II, MD Referring physician: LA NENA Larios Date of Procedure: November 09, 2024 Equipment: Olympus [id number] adult colonoscope Sedation: MAC sedation Indication: Mr. Siddiqui is a 64-year-old gentleman who is here for screening/surveillance colonoscopy. He did have a positive Cologuard in January 2022 and had a subsequent colonoscopy in March 2022 (David Redd M.D.) and had multiple adenomatous colon polyps (tubular adenomas x 4) which were removed. The patient reports no abdominal pain, weight loss, change in his bowel habits or rectal bleeding. He does state that his maternal grandmother had colon cancer at an older age. Procedure: Prior to the procedure, a history and physical exam was performed, and patient's medications and allergies were reviewed. The risks, benefits and alternatives of the sedation and procedure were discussed with the patient. All questions were answered and informed consent was obtained. The patient was brought to the procedure room. Patient identification and proposed procedure were verified by the physician and the nurse. The patient was placed in a left lateral decubitus position and the scope was passed under direct vision. Throughout the procedure, the patient's blood pressure, pulse, and oxygen saturations were monitored continuously. The colonoscopy was accomplished without difficulty. The patient tolerated the procedure well. Findings: On digital rectal examination there was normal rectal tone. There were no external hemorrhoids. The colonoscope was introduced through the anal canal to the rectum and advanced to the cecum. The ileocecal valve and appendiceal orifice were identified. The scope was advanced a short distance into the ileum which appeared grossly normal. The scope was then withdrawn into the colon. There were diverticuli scattered throughout the colon but more predominantly in the descending and sigmoid colon (LEFT colon). There were 10 diminutive polyps (primarily hyperplastic polyps) that were all between 3 and 4 mm in the sigmoid and rectosigmoid that were removed via cold snare polypectomy. The rectum itself was normal. Upon retroflexion within the rectum there were grade 1-2 internal hemorrhoids. The preparation was excellent throughout with [place] Preparation Score of 9. The cecal time was 14 minutes. Impression: 1. Diminutive colonic polyps x 10 (primarily hyperplastic polyps) 2. Pandiverticulosis 3. Grade 1-2 internal hemorrhoids Plan: I will follow-up the polyp histology. If these are primarily hyperplastic polyps, would recommend repeat surveillance colonoscopy in 5 years because of his prior adenomatous polyps. I do suspect a couple of these polyps are adenomatous. I would encourage psyllium bulking fiber supplementation on a maintenance basis.
[2024-11-09 08:12] LABS: RBC Morphology Normal; Total Cells Counted 1
[2024-11-09 08:16] VITALS: BP 93/60; PULSE 74; RESP 16; TEMP 36.1; O2SAT 93
[2024-11-09 08:19] LABS: Ferritin 45.0 ng/ml (17.9-464)
[2024-11-09 08:26] VITALS: BP 109/70; PULSE 83; O2SAT 92
[2024-11-09 08:36] VITALS: BP 131/95; PULSE 73; O2SAT 98
[2024-11-09 08:46] VITALS: BP 142/90; PULSE 67; RESP 18; O2SAT 97
== END 2024-11-09 08:46 | disposition home or self-care (01) ==
PROVIDERS: Internal Medicine Medical Oncology; PCP Nurse Practitioner Family; Visit Provider Internal Medicine Gastroenterology
PROC: 0DJD8ZZ Inspection of Lower Intestinal Tract, Via Natural or Artificial Opening Endoscopic (ICD-10-PCS; CPT 45378; principal; 2024-11-09 08:00)
DX: Z12.11 Encounter for screening for malignant neoplasm of colon (principal); K63.5 Polyp of colon; K57.30 Diverticulosis of large intestine without perforation or abscess without bleeding; K64.0 First degree hemorrhoids; K64.1 Second degree hemorrhoids; D50.9 Iron deficiency anemia, unspecified; Z86.0101 Personal history of adenomatous and serrated colon polyps; I25.10 Atherosclerotic heart disease of native coronary artery without angina pectoris; I10 Essential (primary) hypertension; J44.9 Chronic obstructive pulmonary disease, unspecified; F17.210 Nicotine dependence, cigarettes, uncomplicated; Z79.82 Long term (current) use of aspirin; Z79.899 Other long term (current) drug therapy
CPT/HCPCS: 45385; 82728; 83540; 83550; 85007; 85014; 85018; 85048; 85049; J2003; J2704; J7120

== ENCOUNTER 2024-12-27 06:49 | Outpatient (CLI) | payer MEDICARE, SELFPAY ==
--- OUTSIDE RECORDS SUMMARY | 2024-12-27 06:51 | XMS_ITS | Clinical Summary ---
Author Organization [facility] Address [address] [place], [place] [address] [address] Care Team Providers Care Science Job Titles Name Role Phone Other, Physician Fabrice CRUZ [...] PCV) 2012 Shingrix (#1) 2012 Influenza Vaccine (#1) 2024 RSV Vaccine (60+ or ) (1 [...] patient's age to complete this topic Insurance [address] [facility] MEDICARE REPLACEMENT Care Teams Science Job Titles Relationship Specialty Start Date End Date Other, Physician OutMD kristie PCP - General Internal Medicine 04/20/12
--- OUTSIDE RECORDS SUMMARY | 2024-12-27 06:51 | XMS_ITS | Clinical Summary ---
Author Organization [facility] [place] [address] Care Team Providers Care Plant Tour Guide Name Role Phone Unavailable Primary Care Provider [...] Date Last Done Comments [facility]-Depression Screening 1962 [facility]-/Child/Adol SDOH Screenings 1962 [facility]- SDOH Screenings 1980 [facility]-Adult SDOH Screenings 1980 [facility]-DTaP,Tdap,and Td Vaccines (1 - Tdap) 1981 CT Colonography 2007 Colonoscopy 2007 FIT-DNA 2007 FIT 2007 FOBT 2007 Sigmoidoscopy 2007 [facility]-Colorectal Cancer Screening 2007 [facility]-Pneumococcal Vaccine: 50+ Years (1 of 1 - PCV) 2012 [facility]-Zoster Vaccines (1 of 2) 2012 CAA-NIVAU-25 Vaccine ( season) 2024 01/24/2022, 10/22/2021, 03/13/2021, Additional history exists [facility]-Influenza Vaccine (#1) 11/28/202412/04, 12/27/2020, 12/28/2019, Additional history exists [facility]-RSV Vaccine: [...]
--- NOTE | 2024-12-27 07:00 | CT_ITS ---
FINAL REPORT TECHNIQUE: Multiple axial CT sections were performed through the sinuses without contrast. Reconstruction images were performed. This study was performed with techniques to keep radiation doses as low as reasonably achievable (ALARA). Individualized dose reduction techniques using automated exposure control or adjustment of mA and/or kV according to the patient's size were employed. CLINICAL HISTORY: evaluate and treat LEFT SIDED SINUSITIS, FULLNESS IN EAR FINDINGS: There is extensive lobular mucoperiosteal thickening in the right maxillary sinus. There is mild mucoperiosteal thickening in the left maxillary sinus. No air-fluid levels are identified. There is obstruction of the right ostiomeatal unit. There is nasal septal deviation to the left. IMPRESSION: Bilateral chronic maxillary sinusitis, right greater than left. Reviewed, Interpreted and Dictated by Amauri Vela MD Transcribed by Ariana Hawley Authenticated and [facility]
== END 2024-12-27 23:59 | disposition home or self-care (01) ==
LOC: RAD 06:50
PROVIDERS: PCP Nurse Practitioner Family; Visit Provider Otolaryngology
DX: J32.0 Chronic maxillary sinusitis (principal)
CPT/HCPCS: 70486